=== PATIENT | male | born 1980 | race Caucasian/White ===

== ENCOUNTER → 2017-10-07 | Outpatient (CLI) | payer OTHER ==
[~2017-10-07] MED LIST: ACE500 PO; ALB17R INH; CEFA-83 PO; GUAI480S48 PO; LEVO500T PO; PRE20 PO; [UNRECOGNIZED DRUG - CODE] PO
--- NOTE | 2017-10-07 11:25 | RADIOLOGY IMAGING REPORT ---
FACILITY: [facility] - [place] PATIENT NAME: Elmer Varela : 1980 MR: [id number] V: [id number] EXAM DATE: ORDERING PHYSICIAN: DRU VIDAL TECHNOLOGIST: Location: Patient: Elmer Varela : 1980 Visit/Account:[id number] Date of Sevice: 10/07/2017 Technique: SHOULDER MIN 2 VIEWS LEFT HISTORY: Jerome pop in left shoulder Comparison studies: None FINDINGS: There is no acute fracture. The alignment of the left shoulder is maintained. Soft tissues are unremarkable. IMPRESSION: 1. No acute osseous process. Report Dictated By: Dale Cuevas DO at 10/07/2017 11:21 AM Report E-Signed By: Dale Cuevas DO at 10/07/2017 11:22 AM WSN:[id number]
== END ==
LOC: RAD 09:48
PROVIDERS: ATTEND Nurse Practitioner Family
DX: M25.512 Pain in left shoulder (principal)

== ENCOUNTER 2018-08-03 00:42 | Inpatient (IN) | payer OTHER ==
[~2018-08-03] VITALS: Ht 195.6 cm; Wt 106.1 kg
[2018-08-03] MEDS ORDERED: ANAPHYLAXIS KIT 1 EA ONE (00:48)
--- NOTE | 2018-08-03 00:53 | ER Report ---
History and Physical Time Seen By MD: 00:48 Hx. of Stated Complaint: patient arrived from home, took new antibiotic bactrim before going to bed, woke up and felt numbness to right side of his body, from face to feet HPI/ROS CHIEF COMPLAINT: hoarse voice, cant stand/walk well, numb on right side. HISTORY OF PRESENT ILLNESS: This is a 38 year old male. He awoke tonight with red face, numbness on right side of body, could not stand or walk without falling, and having a hoarse voice. He did start a new antibiotic tonight, he had been on Augmentin for bilateral ear infection which did not seem to be getting better so Bactrim was started. He has had some feeling of being off balance for about a week now. He is also had some pain on the right side of his neck. He has a mild headache. Mild blurred vision but no double vision. He has paresthesias in the right side of the face, arm, and leg. He cannot walk and falls toward the right side. Despite being off balance, he does not feel any weakness in the arm leg or face. His voice is hoarse and he is having trouble swallowing. REVIEW OF SYSTEMS: Constitutional: No fevers or chills tonight. Eyes: As above. ENT: As above. Cardiovascular: No chest pain. No palpitations. Respiratory: No shortness of breath. Gastrointestinal: No abdominal pain. He has been having some nausea. No vomiting. Genitourinary: No trouble urinating. Musculoskeletal: No back pain. No extremity pain. Skin: As above. Neurological: As above. Allergies: Coded Allergies: sulfamethoxazole (Verified Allergy, Severe, angioedema, 08/03/18) trimethoprim (Verified Allergy, Severe, angioedema, 08/03/18) propranolol (Verified Allergy, Intermediate, 08/03/18) FACE SWELLING varenicline (Verified Allergy, Mild, 08/03/18) FACE SWELLING red dye (Verified Allergy, Unknown, 08/03/18) Home Meds Reported Medications Ondansetron Hcl (ZOFRAN) 4 Mg Tablet, 4 MG PO Q12H, TAB 08/03/18 Sulfamethoxazole/Trimet 800-160 Mg Tab (BACTRIM DS TABLET) 1 Each Tablet, 1 TAB PO Q12H, TAB 08/03/18 Nebivolol Hcl (BYSTOLIC) 2.5 Mg Tablet, MG PO unkown dosage 08/03/18 Discontinued Reported Medications Albuterol (Proventil Inhaler) 17 Gm Inh, 0 INH Q4H 1 1-2 PUFFS 09/07/07 Guaifenesin/Hydrocodone Bit (Hycotuss Expectorant) 480 Ml Syrup, 4 OZ PO Q4H 1, #0 ONE TSP BY MOUTH EVERY FOUR HOURS NEEDED FOR COUGH 09/07/07 Prednisone (Prednisone) 20 Mg Tab, 20 MG PO WARF for 4 Days IN THE MORNING 09/07/07 Levofloxacin (Levaquin) 500 Mg Tablet, 500 MG PO DAILY for 7 Days 09/07/07 Past Medical/Surgical History He has high blood pressure and takes Bystolic once a day. Reviewed Nurses Notes: Yes Hx Smoking: Yes Smoking Status: Current: Every Day Smoker Hx Substance Use Disorder: Yes (rare use of marijuana, no other drugs.) Hx Alcohol Use: Yes (occasional use) Family History of: HTN Constitutional Vital Sign - Last 24 Hours 08/03/18 08/03/18 08/03/18 08/03/18 00:48 01:00 01:30 01:45 Temp 97.0 Pulse 70 67 64 Resp 20 20 12 B/P (MAP) 148/104 136/104 (115) 134/109 (117) Pulse Ox 92 O2 Delivery Room Air 08/03/18 08/03/18 08/03/18 08/03/18 02:00 02:01 02:08 02:45 Pulse 67 73 56 Resp 14 17 21 B/P (MAP) 160/108 (125) 130/107 (115) Pulse Ox 97 94 O2 Delivery Room Air Room Air 08/03/18 08/03/18 08/03/18 08/03/18 03:00 03:02 03:15 03:17 Pulse 66 61 Resp 12 11 B/P (MAP) ???/??? (1665) 133/100 (111) Pulse Ox 91 93 O2 Delivery Room Air 08/03/18 08/03/18 08/03/18 08/03/18 03:30 03:45 04:00 04:05 Pulse 62 61 62 60 Resp 11 12 14 14 Pulse Ox 93 92 93 96 O2 Delivery Room Air Room Air Room Air 08/03/18 08/03/1818 04:20 04:30 04:50 Pulse 68 62 Resp 20 9 B/P (MAP) 148/97 (114) Pulse Ox 90 94 O2 Delivery Room Air Room Air Intake and Output 08/02/18 08/02/18 08/03/18 14:59 22:59 06:59 Intake Total 50 ml Balance 50 ml Physical Exam General Appearance: The patient is alert. Acute distress from symptoms. Eyes: Pupils are equal, round. Reactive to light. No pallor, injection or icterus. Extraocular movements are intact. ENT: Mucous membranes are moist. Normal oral mucosa. Posterior oropharynx is normal. Bilateral tympanic membranes with effusions but no redness or bulging noted. Canals appear normal. I don't see any mucous membrane lesions. Neck: Supple, some mild tenderness in the right side of the neck. He does have some cervical lymphadenopathy present. Respiratory: Lungs are clear to auscultation. There are no retractions or accessory muscle use. Cardiovascular: Regular rate and rhythm. No murmurs, gallops or rubs. Normal capillary refill. No edema. Gastrointestinal: Abdomen is soft and non tender. Nondistended. Normal active bowel sounds. Neurological: Alert and oriented x3. Cranial nerves show no deficits other than the hoarseness of his voice and tingling on the right side of his face which is in all 3 distributions. Eye exam as noted above. Visual loving are intact by dir ect confrontation. Midline tongue and symmetric palate elevation. His extremities show normal strength and normal reflexes, paresthesias throughout the right arm and right leg. Skin: Warm and dry. He does have redness of the face which is blotchy but no hives anywhere else noted. Musculoskeletal: Extremities are nontender. Full range of motion. No tenderness in palpation of the cervical, thoracic and lumbar spine. DIFFERENTIAL DIAGNOSIS: After history and physical exam, differential diagnosis was considered for a patient with changes tonight upon awakening that are concerning for stroke or other neurologic problem but also could E related to allergic reaction or adverse reaction to medication. NIH stroke scale was done after the patient went for a head CT scan, noncontrast. My NIH stroke scale showed deficits with the sensory on the right side, mild limb ataxia in the right arm, and mild dysarthria. NIH stroke scale score of 3. Medical Decision Making Data Points Result Diagram: 08/03/18 0130 08/03/18 0100 Laboratory Hematology Test 08/03/18 01:00 08/03/18 01:30 Sodium Level 136 mmol/L (137-145) Potassium Level 3.7 mmol/L (3.5-5.0) Chloride Level 104 mmol/L (98-107) Carbon Dioxide Level 21 mmol/L (22-30) Blood Urea Nitrogen 18 mg/dl (9-21) Creatinine 1.10 mg/dl (0.66-1.25) Glomerular Filtration Rate Calc > 60.0 Random Glucose 117 mg/dl (75-110) Calcium Level 9.3 mg/dl (8.4-10.2) Total Bilirubin 1.7 mg/dl (0.2-1.3) Aspartate Amino Transf (AST/SGOT) 32 U/L (0-35) Alanine Aminotransferase (ALT/SGPT) 48 U/L (0-56) Alkaline Phosphatase 77 U/L (0-126) Troponin I < 0.012 ng/ml Total Protein 7.7 g/dl (6.3-8.2) Albumin 4.4 g/dl (3.5-5.0) Red Blood Count 5.83 M/uL (4.00-5.60) Mean Corpuscular Volume 91.4 fL (80.0-96.0) Mean Corpuscular Hemoglobin 31.8 pg (26.0-33.0) Mean Corpuscular Hemoglobin Concent 34.8 g/dL (32.0-36.0) Red Cell Distribution Width 13.4 % (11.5-14.5) Mean Platelet Volume 8.3 fL (7.2-11.1) Neutrophils (%) (Auto) 54.5 % (39.4-72.5) Lymphocytes (%) (Auto) 28.1 % (17.6-49.6) Monocytes (%) (Auto) 9.3 % (4.1-12.4) Eosinophils (%) (Auto) 7.1 % (0.4-6.7) Basophils (%) (Auto) 1.0 % (0.3-1.4) Nucleated RBC Relative Count (auto) 0.0 /100WBC Neutrophils # (Auto) 6.3 K/uL (2.0-7.4) Lymphocytes # (Auto) 3.2 K/uL (1.3-3.6) Monocytes # (Auto) 1.1 K/uL (0.3-1.0) Eosinophils # (Auto) 0.8 K/uL (0.0-0.5) Basophils # (Auto) 0.1 K/uL (0.0-0.1) Nucleated RBC Absolute Count (auto) 0.00 K/uL Prothrombin Time 13.5 seconds (12.0-14.4) Prothromb Time International Ratio 1.03 Chemistry Test 08/03/18 01:00 08/03/18 01:30 Glomerular Filtration Rate Calc > 60.0 Calcium Level 9.3 mg/dl (8.4-10.2) Total Bilirubin 1.7 mg/dl (0.2-1.3) Aspartate Amino Transf (AST/SGOT) 32 U/L (0-35) Alanine Aminotransferase (ALT/SGPT) 48 U/L (0-56) Alkaline Phosphatase 77 U/L (0-126) Troponin I < 0.012 ng/ml Total Protein 7.7 g/dl (6.3-8.2) Albumin 4.4 g/dl (3.5-5.0) White Blood Count 11.5 k/uL (4.5-11.0) Red Blood Count 5.83 M/uL (4.00-5.60) Hemoglobin 18.5 g/dL (14.0-18.0) Hematocrit 53.3 % (42.0-52.0) Mean Corpuscular Volume 91.4 fL (80.0-96.0) Mean Corpuscular Hemoglobin 31.8 pg (26.0-33.0) Mean Corpuscular Hemoglobin Concent 34.8 g/dL (32.0-36.0) Red Cell Distribution Width 13.4 % (11.5-14.5) Platelet Count 254 K/uL (150-450) Mean Platelet Volume 8.3 fL (7.2-11.1) Neutrophils (%) (Auto) 54.5 % (39.4-72.5) Lymphocytes (%) (Auto) 28.1 % (17.6-49.6) Monocytes (%) (Auto) 9.3 % (4.1-12.4) Eosinophils (%) (Auto) 7.1 % (0.4-6.7) Basophils (%) (Auto) 1.0 % (0.3-1.4) Nucleated RBC Relative Count (auto) 0.0 /100WBC Neutrophils # (Auto) 6.3 K/uL (2.0-7.4) Lymphocytes # (Auto) 3.2 K/uL (1.3-3.6) Monocytes # (Auto) 1.1 K/uL (0.3-1.0) Eosinophils # (Auto) 0.8 K/uL (0.0-0.5) Basophils # (Auto) 0.1 K/uL (0.0-0.1) Nucleated RBC Absolute Count (auto) 0.00 K/uL Prothrombin Time 13.5 seconds (12.0-14.4) Prothromb Time International Ratio 1.03 Coagulation Test 08/03/18 01:30 Prothrombin Time 13.5 seconds Prothromb Time International Ratio 1.03 EKG/Imaging EKG Interpretation 12 lead EKG: Rhythm: Normal sinus rhythm, rate 64 [place]: normal QRS: Incomplete right bundle branch block ST segments: No signs of ischemia, no ST elevation or depression noted Imaging CT Head without contrast Indication: Right-sided numbness. Comparison: None available. Technique: Axial CT images were obtained through the brain from the skull base to the vertex without administration of IV contrast. One of the following dose optimization techniques was utilized in the performance of this exam: Automated exposure control; adjustment of the mA and/or kV according to the patient's size; or use of an iterative reconstruction technique. Specific details can be referenced in the facility's radiology CT exam operational policy. Findings: No evidence of mass, mass effect, or midline shift. No acute intracranial hemorrhage or acute territorial infarction. Skull is nonacute. Globes and orbits are normal. Mild mucosal thickening and/or small cysts in the maxillary sinuses. IMPRESSION: No acute intracranial abnormality. Dr. Jerry discussed this case with STACY LERNER on 08/03/2018 1:34 AM. Report Dictated By: Joey Jerry MD at 08/03/2018 1:30 AM ED Course/Re-evaluation Clinical Indication for ER IV: IV Access ED Course After my initial evaluation, I had the nurses start an IV and the patient was given Solu-Medrol, Benadryl, and Pepcid and then went to CT scan. Noncontrast CT scan was obtained. I performed my NIH stroke scale when the patient returned from CT scan. IVs were established, EKG obtained, labs sent for further evaluation. Tele-stroke was accessed and we were able to talk with Dr. Ortega, at the [facility]. We repeated the stroke scale, and he did have improvement of the ataxia of the right arm, and did have some improvement of the tingling in the right arm and right leg but the tingling in the face remained. He still had the hoarseness. He is not able to stand up without falling to the right side and is unable to walk. Based on our evaluation tonight, the patient remains in a window for thrombolytics, we had a discussion with the patient and his regarding the use of medicines for stroke, but in this case we cannot tell for sure if he is having a stroke or not. We explained the benefit of using the medicine as well as the risk. We answered questions and after doing so the patient decided that he would like to not use the thrombolytics at this point. At this point as an alternative we performed a CTA of the head and neck. These were negative for vascular pathology. I discussed the results with Dr. Cuenca, our hospitalist, is admitting the patient. At this point uncertain of the exact diagnosis of the patient's symptoms. Further workup including MRI to be done. Decision to Disposition Date: Aug 03, 2018 Decision to Disposition Time: 04:17 Depart Departure Latest Vital Signs Vital Signs Date Time Temp Pulse Resp B/P (MAP) Pulse Ox O2 Delivery O2 Flow Rate FiO2 08/03/18 04:50 62 9 94 Room Air 08/03/18 04:30 148/97 (114) 08/03/18 00:48 97.0 Impression: Primary Impression: Acute allergic reaction Additional Impressions: Paresthesias Disequilibrium Hoarseness of voice Condition: Condition Unchanged Disposition: Admitted from ER Problem Qualifiers Primary Impression: Acute allergic reaction Encounter type: initial encounter Qualified Codes: T78.40XA - Allergy, unspecified, initial encounter STACY LERNER MD Aug 03, 2018 00:53
[2018-08-03] MEDS ORDERED: methylPREDNIS SUCC 125 MG/2ML IVP ONE (00:55)
[2018-08-03] MEDS ORDERED: diphenhydrAMINE 50 MG/ML VIAL IVP ONE (00:55)
[2018-08-03] MEDS ORDERED: FAMOTIDINE(*) 20MG/50ML PREMIX 50 ML IVPB ONE (00:55)
[2018-08-03] MEDS ORDERED: NEBI2.5T PO (01:17)
[2018-08-03] MEDS ORDERED: SULF-198 PO (01:18)
[2018-08-03] MEDS ORDERED: ONDA4TAB97 PO (01:18)
--- NOTE | 2018-08-03 01:39 | RADIOLOGY IMAGING REPORT ---
FACILITY: [facility] - [place] PATIENT NAME: Elmer Varela : 1980 MR: [id number] V: [id number] EXAM DATE: ORDERING PHYSICIAN: STACY LERNER TECHNOLOGIST: Location: [facility] [place] Patient: Elmer Varela : 1980 Visit/Account:[id number] Date of Sevice: 08/03/2018 CT Head without contrast Indication: Right-sided numbness. Comparison: None available. Technique: Axial CT images were obtained through the brain from the skull base to the vertex without administration of IV contrast. One of the following dose optimization techniques was utilized in th e performance of this exam: Automated exposure control; adjustment of the mA and/or kV according to t he patient's size; or use of an iterative reconstruction technique. Specific details can be referen la in the facility's radiology CT exam operational policy. Findings: No evidence of mass, mass effect, or midline shift. No acute intracranial hemorrhage or acute territorial infarction. Skull is nonacute. Globes and orbits are normal. Mild mucosal thickening and/or small cysts in the maxillary sinuses. IMPRESSION: No acute intracranial abnormality. Dr. Jerry discussed this case with STACY LERNER on 08/03/2018 1:34 AM. Report Dictated By: Joey Jerry MD at 08/03/2018 1:30 AM Report E-Signed By: Joey Jerry MD at 08/03/2018 1:35 AM WSN:[id number]
[2018-08-03 01:41] LABS: PLATELET COUNT, AUTOMATED 254 K/uL (150-450)
[2018-08-03 01:57] LABS: INR 1.03
[2018-08-03] MEDS ORDERED: NS(*) 0.9% 50 ML BAG 50 ML ONE ×2 (02:12→02:38)
[2018-08-03] MEDS ORDERED: IOPAMIDOL 76% 75 ML INFUS BTL 75 ML ONE ×2 (02:12→02:38)
--- NOTE | 2018-08-03 03:21 | RADIOLOGY IMAGING REPORT ---
FACILITY: [facility] PATIENT NAME: Elmer Varela : 1980 MR: [id number] V: [id number] EXAM DATE: ORDERING PHYSICIAN: STACY LERNER TECHNOLOGIST: [place] [facility] [place] Elmer Varela : 1980 Visit/Account:[id number] Date of Sevice: 08/03/2018 AP CHEST 08/03/2018 2:43 AM. INDICATION: COMPARISON: 09/05/2007. FINDINGS: Lungs are well-expanded. There is no consolidation. No pleural effusion or pneumothorax. Heart size i s normal. IMPRESSION: No acute abnormality. Report Dictated By: Joey Jerry MD at 08/03/2018 2:59 AM Report E-Signed By: Joey Jerry MD at 08/03/2018 3:00 AM WSN:[id number]
--- NOTE | 2018-08-03 03:28 | RADIOLOGY IMAGING REPORT ---
FACILITY: [facility] PATIENT NAME: Elmer Varela : 1980 MR: [id number] V: [id number] EXAM DATE: [id number] ORDERING PHYSICIAN: STACY LERNER TECHNOLOGIST: Location: [facility] Patient: Elmer Varela : 1980 Visit/Account:[id number] Date of Sevice: 08/03/2018 CT angiogram head and neck INDICATION: Right-sided numbness. COMPARISON: None available TECHNIQUE: Axial CT images were obtained through the cerebral and neck vasculature. Multiplanar ref ormatted images were provided. 2-D and 3-D imaging was performed. Evaluation of internal carotid st enosis was performed per NASCET criteria. A total of 125 mL Isovue-370 IV contrast was administered. One of the following dose optimization techniques was utilized in the performance of this exam: Autom ated exposure control; adjustment of the mA and/or kV according to the patient's size; or use of an i terative reconstruction technique. Specific details can be referenced in the facility's radiology C T exam operational policy. FINDINGS: The middle cerebral arteries, anterior cerebral arteries, posterior cerebral arteries as well as the bilateral vertebral arteries and carotid arteries are patent without focal stricture or aneurysm. Ve rtebral system is left dominant. There are no significant atherosclerotic calcifications seen. The visualized aortic arch and great vessels off the aortic arch are unremarkable. Left superior interco stal vein noted adjacent to the aortic arch. Dural venous sinuses are patent. No acute osseous abnormality. Soft tissues are nonacute. Calcifications in the palatine tonsils con sistent with remote infection. Lung apices are clear. IMPRESSION: No acute abnormality of the neck and cerebral vasculature. Report Dictated By: Joey Jerry MD at 08/03/2018 3:12 AM Report E-Signed By: Joey Jerry MD at 08/03/2018 3:24 AM WSN:[id number]
--- NOTE | 2018-08-03 03:30 | RADIOLOGY IMAGING REPORT ---
FACILITY: [facility] - [place] PATIENT NAME: Elmer Varela : 1980 MR: [id number] V: [id number] EXAM DATE: [id number] ORDERING PHYSICIAN: STACY LERNER TECHNOLOGIST: Location: [facility] [place] Patient: Elmer Varela : 1980 Visit/Account:[id number] Date of Sevice: 08/03/2018 CT angiogram head and neck INDICATION: Right-sided numbness. COMPARISON: None available TECHNIQUE: Axial CT images were obtained through the cerebral and neck vasculature. Multiplanar ref ormatted images were provided. 2-D and 3-D imaging was performed. Evaluation of internal carotid st enosis was performed per NASCET criteria. A total of 125 mL Isovue-370 IV contrast was administered. One of the following dose optimization techniques was utilized in the performance of this exam: Autom ated exposure control; adjustment of the mA and/or kV according to the patient's size; or use of an i terative reconstruction technique. Specific details can be referenced in the facility's radiology C T exam operational policy. FINDINGS: The middle cerebral arteries, anterior cerebral arteries, posterior cerebral arteries as well as the bilateral vertebral arteries and carotid arteries are patent without focal stricture or aneurysm. Ve rtebral system is left dominant. There are no significant atherosclerotic calcifications seen. The visualized aortic arch and great vessels off the aortic arch are unremarkable. Left superior interco stal vein noted adjacent to the aortic arch. Dural venous sinuses are patent. No acute osseous abnormality. Soft tissues are nonacute. Calcifications in the palatine tonsils con sistent with remote infection. Lung apices are clear. IMPRESSION: No acute abnormality of the neck and cerebral vasculature. Report Dictated By: Joey Jerry MD at 08/03/2018 3:26 AM Report E-Signed By: Joey Jerry MD at 08/03/2018 3:27 AM WSN:[id number]
--- NOTE | 2018-08-03 04:49 | EKG ---
FACILITY: [facility] PATIENT NAME: FE AQUINO : [id number] MR: [id number] V: [id number] EXAM DATE: ORDERING PHYSICIAN: STACY LERNER TECHNOLOGIST: JOSELIN Test Reason : NEURO Blood Pressure : / mmHG Vent. Rate : 064 BPM Atrial Rate : 064 BPM P-R Int : 176 ms QRS Dur : 098 ms QT Int : 442 ms P-R-T Axes : 064 -15 026 degrees QTc Int : 455 ms Normal sinus rhythm No ST-T abnormalities R wave progression consistent with an old ant/sep [place] vs lead placement No previous ECGs available Confirmed by RHONDA SHOEMAKER ([id number]) on 08/03/2018 6:42:08 AM Referred By: Confirmed By:RHONDA SHOEMAKER
[2018-08-03] MEDS ORDERED: EPINEPHrine 0.3 MG SYR IM ONLY PRN ×2 (04:50→09:55)
[2018-08-03] MEDS ORDERED: INFLUENZA VIRUS VAC 0.5ML SYR IM ONLY ONE (04:50)
[2018-08-03 05:35] VITALS: BP 133/55
--- NOTE | 2018-08-03 05:40 | History & Physical ---
History of Present Illness History of Present Illness 38yo male with HTN and is a current cigarette smoker who came to the ER for sudden onset of hoarseness, right facial swelling/numbness, and problems with balance. 6 days ago, he developed some mild balance problems, and right ear pain that radiated to his forehead. He went to Urgent Care that diagnosed an ear infection and he was started on Augmentin. The balance problems improved, but he had significant nausea with the Augmentin. he saw his PCP who changed him to Bactrim. He took the first two doses yesterday. He went to bed about 10pm and awoke at 1am with the above problems. He reported some tingling in the bottom of his right foot and going down the right leg that now has resolved. He denies vertigo symptoms, sensation of about to pass out, extremity weakness. He chronically gets intermittent neck pain and right sided jaw pain for a couple of years. He took some Vitamin D today. He has been on Bystolic for about a year. He takes ibuprofen every once in awhile. In the ER, he was given methylprednisolone, diphenhydramine, and famotidine. The facial swelling and hoarseness have been slowly improving. History Problems: (1) Cigarette smoker (2) HTN (hypertension) Status: Chronic Home Meds Reported Medications Ondansetron Hcl (ZOFRAN) 4 Mg Tablet, 4 MG PO Q12H, TAB 08/03/18 Sulfamethoxazole/Trimet 800-160 Mg Tab (BACTRIM DS TABLET) 1 Each Tablet, 1 TAB PO Q12H, TAB 08/03/18 Nebivolol Hcl (BYSTOLIC) 2.5 Mg Tablet, MG PO unkown dosage 08/03/18 Discontinued Reported Medications Albuterol (Proventil Inhaler) 17 Gm Inh, 0 INH Q4H 1 1-2 PUFFS 09/07/07 Guaifenesin/Hydrocodone Bit (Hycotuss Expectorant) 480 Ml Syrup, 4 OZ PO Q4H 1, #0 ONE TSP BY MOUTH EVERY FOUR HOURS NEEDED FOR COUGH 09/07/07 Prednisone (Prednisone) 20 Mg Tab, 20 MG PO WARF for 4 Days IN THE MORNING 09/07/07 Levofloxacin (Levaquin) 500 Mg Tablet, 500 MG PO DAILY for 7 Days 12/19/07 Allergies: Coded Allergies: Bactrim (Verified Allergy, Severe, angioedema, 08/03/18) propranolol (Verified Allergy, Intermediate, 08/03/18) FACE SWELLING varenicline (Verified Allergy, Mild, 08/03/18) FACE SWELLING red dye (Verified Allergy, Unknown, 08/03/18) Hx Smoking: Yes Smoking Status: Current: Every Day Smoker Hx Alcohol Use: Yes (occasional use) Review of Systems All Systems Reviewed/Normal: Yes, Except as Noted Exam Vital Signs Vital Signs Date Time Temp Pulse Resp B/P (MAP) Pulse Ox O2 Delivery O2 Flow Rate FiO2 08/03/18 04:50 62 9 94 Room Air 08/03/18 04:30 148/97 (114) 08/03/18 00:48 97.0 General Appearance: Alert, Awake, No Acute Distress Neuro: Other (He reports the sensation of "pins and needles" on the right in V2 and V3 distribution. Other CN intact. Normal and symmetric UE and LE strenght testing. Normal sensation to light touch in UE and LE. Knows where he is, the events that brought him to the hospital, and date) Eyes: Other (R pupil appears a bit small than the L (2mm and 3mm). Both are reactive. ) ENT: Moist Mucous Membranes, Other (No obvious tongue swelling. Uvula deviates to the right. No palate swelling. No cheek swelling. Erythema in the ext canals bilaterally near the TM with an effusion behind the TM. No auricular pain bilaterally or pain with the speculum in the ears.) Cardiovascular: Regular Rate and Rhythm Respiratory: Clear to Auscultation GI: Abd Soft and Non-Tender Extremities: No Edema Integumentary: No Jaundice, No Cyanosis Medical Decision Making Data Points Result Diagram: 08/03/18 01308/03/18 010 Item Value Date Time Prothromb Time International Ratio 1.03 08/03/18 013 Total Bilirubin 1.7 mg/dl H 08/03/18 010 Aspartate Amino Transf (AST/SGOT) 32 U/L 08/03/18 010 Alanine Aminotransferase (ALT/SGPT) 48 U/L 08/03/18 010 Alkaline Phosphatase 77 U/L 08/03/18 010 Neutrophils (%) (Auto) 54.5 % 08/03/18 013 Lymphocytes (%) (Auto) 28.1 % 08/03/18129 Monocytes (%) (Auto) 9.3 % 08/03/18129 Eosinophils (%) (Auto) 7.1 % H 08/03/18129 Basophils (%) (Auto) 1.0 % 08/03/18129 EKG / Imaging Imaging Head CTA - No acute abnormality of the neck and cerebral vasculature. Neck CTA - No acute abnormality of the neck and cerebral vasculature. CXR - No acute abnormality. Head CT - No acute intracranial abnormality. Assessment and Plan Problems: (1) Acute allergic reaction Status: Acute Assessment & Plan: He presented with sudden onset right facial swelling, hoarseness, right facial numbness, and difficulty with balance. He has taken 2 doses of Bactrim for Otitis Media. He was given methylprednisolone, diphenhydramine and famotidine in the ER and his symptoms are significantly improving. (2) Disequilibrium Status: Acute Assessment & Plan: He had some difficulty with balance 6 days prior to admission, which started with the right ear pain. It improved, but worsened tonight. He denied vertigo/near syncope symptoms. No obvious nystagmus on exam. The head CT and head/neck CTA showed no abnormalities. He will get an MRI of the brain to further evaluate the balance problems and the paraesthesias. Will ask PT to evaluate. See above. (3) Hoarseness of voice Status: Acute Assessment & Plan: See above. (4) Paresthesias Status: Acute Assessment & Plan: See above. (5) HTN (hypertension) Status: Chronic Assessment & Plan: Will continue chronic Bystolic. He might be better served with another class of antihypertensive since BB are not first line for HTN. However, he might have other reasons to be on it, so will defer to his PCP. Copies to: MAHIN FINN ; Venous Thromboembolism Antithrombotics Is Pt On Any Antithrombotics?: No Exam Sepsis Risk: No Definite Risk Problem Qualifiers (1) Acute allergic reaction: Encounter type: initial encounter Qualified Codes: T78.40XA - Allergy, unspecified, initial encounter RHONDA SHOEMAKER MD Aug 03, 2018 05:40
[2018-08-03 07:20] VITALS: BP 143/98
--- NOTE | 2018-08-03 08:44 | RADIOLOGY IMAGING REPORT ---
FACILITY: [facility] PATIENT NAME: Elmer Varela : 1980 MR: [id number] V: [id number] EXAM DATE: ORDERING PHYSICIAN: RHONDA SHOEMAKER TECHNOLOGIST: Location: [facility] Patient: Elmer Varela : 1980 Visit/Account:[id number] Date of Sevice: 08/03/2018 BRAIN W/O CONTRAST Comparisons: None. Additional pertinent history: Right facial numbness and balance problems. TECHNIQUE: Multiplanar, multisequence brain MRI was performed without gadolinium contrast. FINDINGS: Sagittal midline structures and craniocervical junction: Negative. Midline shift: None. Ventricles: Negative. Brain parenchyma: Diffusion weighted imaging: Region of restricted diffusion involving the right lateral aspects of t he medulla Gradient sequence: Negative. T2 weighted FLAIR images: Negative. Extra-axial spaces: Negative. Dural venous sinuses and major arterial flow voids: Negative. Mastoid air cells and paranasal sinuses: Mild mucosal thickening involving the maxillary sinuses as w ell as the ethmoid air cells. Surrounding soft tissues and orbits: Negative. Impression: 1. Acute region of infarct involving the right lateral aspect of the medulla. 2. No associated hemorrhage. 3. Mild underlying paranasal sinus disease. Findings discussed with Dr. Alberto Smith undated exam at 8:30 AM. Report Dictated By: Darvin Marrero MD at 08/03/2018 8:23 AM Report E-Signed By: Darvin Marrero MD at 08/03/2018 8:39 AM WSN:[id number]
[2018-08-03] MEDS ORDERED: FAMOTIDINE 20 MG TAB PO SCH (09:00)
[2018-08-03] MEDS ORDERED: predniSONE 20 MG TAB PO SCH (09:00)
[2018-08-03] MEDS ORDERED: CETIRIZINE HCL 10 MG TAB PO SCH (09:00)
[2018-08-03] MEDS: NEBIVOLOL HCL 5 MG TAB PO SCH ×2 (09:51→21:44)
--- NOTE | 2018-08-03 10:10 | Hospitalist Progress Note ---
Subjective Progress Notes Subjective He reports continued paresthesias on face/arm/leg/foot. He continues to have sense of imbalance as well. Physical Exam Vital Signs Date Time Temp Pulse Resp B/P (MAP) Pulse Ox O2 Delivery O2 Flow Rate FiO2 08/03/18 07:20 91 Room Air 08/03/18 07:20 98.2 68 12 143/98 (113) Intake and Output 08/03/18 06:59 Intake Total 50 ml Balance 50 ml Intake IV Total 50 ml General Appearance: Alert, Awake Neuro: Other (right ptosis, but able to open eye fully/some RUE discoord ination/mild weakness right proximal lower extremity) Eyes: PERRLA, Other (significant rightward nystagmus) ENT: Other (some hoarseness of voice) Neck: Other (no bruits) Cardiovascular: Regular Rate and Rhythm GI: Soft and Non-Tender Extremities: Warm, Perfused Integumentary: Skin Intact without Lesion / Mass Psych: Alert & Oriented X3 Result Diagram: 08/03/18 0130 08/03/18 0100 Assessment and Plan Problems: (1) Arterial ischemic stroke, vertebrobasilar, brainstem, acute Status: Acute Assessment & Plan: Right lateral medullary. Discussed case with neurology at [facility] [place] - recommended IV heparin initially as it sounds he has had some "stuttering" symptoms up to this point. After he has "stabilized" recommendation was for transition to oral anticoagulant with Xarelto or Eliquis. He did not feel there was an indication for thrombolysis or other intervention at this point. Will have PT/OT/ST see. Depending on progress, may need to consider acute rehab. I discussed all of this with the patient and his and they seem to understand very well. (2) Disequilibrium Status: Acute Assessment & Plan: He had some difficulty with balance 6-7 days prior to admission, which started with the right ear pain/facial paresthesias. It initially improved, but worsened significantly last night. He has significant nystagmus on exam. The head CT showed no abnormalities, but CTA showed small right vertebral artery - neurology believes this could represent dissection. MRI of the brain does show the right lateral medullary infarct. See above. (3) Hoarseness of voice Status: Acute Assessment & Plan: See above. (4) Paresthesias Status: Acute Assessment & Plan: See above. (5) HTN (hypertension) Status: Chronic Assessment & Plan: Will continue chronic Bystolic for now - monitor BPs. Watch closely. Exam Sepsis Risk: No Definite Risk HERBERT HOPPER MD Aug 03, 2018 10:10
[2018-08-03] MEDS ORDERED: HEPARIN* SOD/D5W 25000 U/500ML 500 ML IV SCH ×2 (10:30→17:20)
[2018-08-03] MEDS ORDERED: HYPROMELLOSE 0.4% LUB 15ML BTL OU PRN (10:30)
[2018-08-03 11:54] VITALS: BP 126/84
--- NOTE | 2018-08-03 12:19 | Medical Nutrition Therapy ---
Nutrition Anthropometrics Height (Inches): 77 Weight (Pounds): 234 Weight (Calculated Kilograms): 106.141 BMI: 27.7 Ulises Nutrition Score: Adequate Ulises Nutrition Risk Score: 20 Dietary Referral Nutrition Risk Factors: Diff. Swallowing Nutrition Risk Comment: Physical Findings Physical Appearance: Overweight BMI 25-29 Skin Appearance Skin Appearance: Edema Edema Location Modifier: Edema Location: Type of Edema: Degree of Edema: Gastrointestinal Symptoms GI Symtoms: Tube Present: Bowel Sounds: Recent Bowel Pattern: Stool Characteristics: Nutritional Diagnosis Nutritional Risk Acuity 2: Swallowing Problem Past Medical History: Hx hypertension, cigarette smoker (current), Vit D deficiency Nutritional Acuity: 2-Moderate Nutrition Diagnosis: Swallowing Difficulties Nutrition Etiology: Physiological Causes Nutrition Problem/Etiology/Sym: Swallowing difficulties r/t physiological causes AEB reported by pt, swollen throat. Energy Requirement: 2500 (M-SJ * 1.2) Protein Requirement: 120 (1.1g/kg) Fluid Requirement: 2500 (1ml/kg) Diet Type: Clear Liquids Nutrition Intervention: Incr diet as tolerated Nutrition Monitoring & Eval Nutrition Goals: Eat 75-100% Meal, Drink > 1500 cc/day RD Patient Assessment Time: [address] Assessment Type: RD Assessment Patient Nutrition Acuity: 2-Moderate Follow Up Date: Aug 05, 2018 Nutritional Comment: 08/03 Pt admitted for an acute allergic reaction and disequilibrium. Updated MD note states Arterial ischemic stroke, vertebrobasilar, brainstem, acute. Hx of hypertension, cigarette smoker (current), Vit D defiency. Pt on clear liq diet due to difficulty of swallowing. Pt's throat is swollen. Pt stated to me that he was 77 inches in height, which puts his BMI at 28. Alb is WNL at 4.4. ST will evaluate for any texture consistency issues. Will follow. CHON JAY Aug 03, 2018 10:03
[2018-08-03 15:41] VITALS: BP 139/85
[2018-08-03] MEDS ORDERED: ACETAMINOPHEN(*)1000 MG/100 ML 100 ML IVPB PRN (16:30)
[2018-08-03] MEDS ORDERED: NS(*) 0.9% 1000 ML BAG 1,000 ML IV PRN (16:35)
--- NOTE | 2018-08-03 16:43 | SLP BEDSIDE SWALLOW EVALUATION ---
Bedside Dysphagia Evaluation Physician: Marcie Smith MD Clinician: Ivette Lange MS, CCC-SKATING RINK MANAGER Type of Assessment: Bedside Dysphagia Evaluation Patient: Elmer Varela : [birth year], 38yo Evaluation Date: 08/03/18 BACKGROUND The pt is a 38yo male admitted to [facility] on 08/03/18 with sudden onset of vocal hoarseness, nausea, R facial welling/numbness, and loss of balance. Brain MRI illustrated acute infarct involving the right, lateral aspect of the medulla. A dysphagia assessment was ordered secondary to brainstem stroke diagnosis, and due to pt reports of swallowing difficulties. Primary Medical Diagnosis: Arterial ischemic stroke, brainstem, acute (R lateral medullary) Past Medical History: HTN Pain Scale (0-10): pain not reported; however, pt with significant nausea and intermittent dry heaving throughout encounter. RN informed. LOC / Participation: alert, cooperative, pleasant. Participation somewhat limited by severity of nausea. Follows instructions: yes; multi-level; no difficulty. Orientation: A&O x4 Functional Communication Deficits impact swallow function/safety, or response to therapy: No DYSPHAGIA Sialorrhea: No; however, pt with some excessive salivary production independently managed via use of Yankaur. Xerostomia: No. Supplemental Oxygen Use: No. COPD Dx: No. Pain with Swallow: Yes. Pt was seen at the bedside for a clinical dysphagia assessment. Oromotor exam was remarkable for R-sided uvular deviation at rest, and L-sided lingual deviation upon protrusion (consistent with R medullary stroke dx). Otherwise adequate strength, speed, coordination, and ROM of all oral musculature. The pt demonstrated a hoarse, breathy vocal quality with maximum phonation time achieved at approximately 3 seconds. No vocal wetness observed prior to initiation of PO intake. Pt was analyzed w/ PO trials of thin and nectar thick liquids via small, tsp sized cup sips, in addition to trials of pureed solids. PO trials were somewhat limited due to severity of induced nausea and associated dry heaving. Pt executed at least three swallows per bolus to clear material. Vocal changes were noted with thin and nectar thick liquids. Subtle throat clearing also intermittently observed. The pt reported perception of material sticking in the back of his throat with deglutition of pureed textures. Given the region of acute infarct, decreased UES relaxation is suspected. Hyolaryngeal elevation/excursion appeared somewhat sluggish to palpation. Overall, the pt presents with suspected pharyngeal dysphagia characterized by throat clearing and vocal changes with liquid trials, multiple swallows to clear bolus, self- reported sticking sensation in pharynx, breathy vocal quality, and sluggish movement of the hyolaryngeal complex. Nausea and dry heaving associated with PO intake is also concerning due to risk for aspiration of emesis. At this time, pt does not appear appropriate to resume PO intake beyond small sips of water and/or ice chips following participation in rigorous oral care. Sips/chips are recommended to avoid atrophy of pharyngeal musculature and to promote oral hygiene. Evaluation results were discussed w/ pt, MD, and RN, including education re: risk for aspiration, aspiration precautions, PO recommendations, and the importance of completing regular oral hygiene. Recommend completion of MBSS on 08/04 to obtain objective information re: suspected pharyngeal dysphagia. ST ASSESSMENT SUMMARY Aspiration Risk: Pt is at moderate to severely elevated risk for aspiration 2/2 brainstem stroke, suspected pharyngeal dysphagia, vocal hoarseness, and overt s/sx of aspiration observed during bedside swallow assessment. Speech Therapy Need ST will continue to analyze swallow status and evolve diet recommendations as appropriate. MBSS has been scheduled for completion on 08/03/18. ST will also continue to provide education re: aspiration precautions, safe swallow strategies, compensations, and exercises to minimize risk for respiratory compromise. RECOMMENDATIONS 1. Diet: sips/chips only (following oral care). Upright with PO. Small sips only. One at a time. 2. Medications: non-oral, IV 3. Aspiration precautions: complete regular oral hygiene 4. [facility] daily. 1. Patient and caregivers will receive ongoing education re: safe swallow precautions, diet modification recommendations, and compensatory techniques, and will provide verbal/visual demonstration of comprehension with 100% accuracy, min cues. 2. Patient will participate in an objective, modified barium swallow study to develop recommendations for safe PO intake, analyze physiological deficits, trial compensations, and tailor patient-specific pharyngeal exercises. Biometric Screener Goals 1. The patient will safely and efficiently tolerate regular diet and thin liquids with independent implementation of safe swallow strategies and minimized s/s of dysphagia. Rehabilitation Prognosis: Good. Pt w/ high PLOF, strong motivation. Thank you for this referral. Please call [phone] Ivette Lange M.S., [facility]-[employer] MANAGER Speech Therapist [*] [facility]ENTER[facility]
[2018-08-03] MEDS ORDERED: NS(*) 0.9% 500 ML BAG 500 ML ONE (17:04)
[2018-08-03 19:06] VITALS: BP 125/85
[2018-08-03 23:51] VITALS: BP 125/76
[2018-08-04 03:11] VITALS: BP 117/74
[2018-08-04] MEDS ORDERED: HEPARIN* SOD/D5W 25000 U/500ML 500 ML IV SCH (03:16)
[2018-08-04 07:51] LABS: PLATELET COUNT, AUTOMATED 310 K/uL (150-450)
[2018-08-04 08:11] LABS: LDL CHOLESTEROL 125 mg/dl
[2018-08-04] MEDS: NEBIVOLOL HCL 5 MG TAB PO SCH ×2 (08:53→21:03)
[2018-08-04] MEDS ORDERED: NEBIVOLOL HCL 5 MG TAB PO SCH (09:00)
[2018-08-04 09:18] VITALS: BP 123/87
[2018-08-04] MEDS ORDERED: BARIUM SULFATE 148 GM POWDER ONE (09:23)
[2018-08-04] MEDS ORDERED: BARIUM SULFATE 240 ML ORAL SUS (NECTAR) ONE (09:23)
[2018-08-04] MEDS: APIXABAN 2.5 MG TABLET PO SCH ×2 (09:28→21:04)
--- NOTE | 2018-08-04 10:33 | Hospitalist Progress Note ---
Subjective Progress Notes Subjective He reports continued double vision, right facial numbness, right upper leg tingling, and balance problems. His thinks he looks a bit better today. Physical Exam Vital Signs Date Time Temp Pulse Resp B/P (MAP) Pulse Ox O2 Delivery O2 Flow Rate FiO2 08/04/18 05:41 90 08/04/18 03:58 61 08/04/18 03:11 97.9 18 117/74 (88) Nasal Cannula 1.0 l Intake and Output 08/04/18 07:00 Intake Total 1696 ml Output Total 400 ml Balance 1296 ml Intake Oral 480 ml IV Total 1216 ml Output Urine Total 400 ml General Appearance: Alert, Awake, No Acute Distress, Other (Face and upper ch est are a bit flushed) Neuro: Other (Nystagmus that won't extinguish when looking to his right. He reports continued diplopia. EOMI. Strength is adequate and symmetric in UE and LE. He normal sensation to light touch in UE and LE. He has decreased sensation to light touch in V2 distribution on right, but then reports entire right side of face feels numb. No facial droop. Hoarse. R pupil a bit smaller than L, but both are reactive.) Result Diagram: 08/04/1874308/04/18743 Assessment and Plan Problems: (1) Arterial ischemic stroke, vertebrobasilar, brainstem, acute Status: Acute Assessment & Plan: The patient presented with right facial numbness/swelling, falling to the right, hoarseness, trouble swallowing, and tingling in right leg. He has a stroke in the Right lateral medullary by MRI. Dr. Smith discussed the case with neurology (Dr. Leonard Andrade) at [facility] - recommended IV heparin initially as it sounds he has had some "stuttering" symptoms and transition to oral anticoagulant with Xarelto or Eliquis with ASA 81mg. He did not feel there was an indication for thrombolysis or other intervention at this point. Will switch to Eliquis today. Crestor high intensity therapy starting tonight. Patient told that he can no longer smoke cigarettes. PT/OT/ST seeing the patient. MBS, echo, and carotid Doppler study today. SW is looking at acute rehab facilities. (2) Disequilibrium Status: Acute Assessment & Plan: He had some difficulty with balance 6-7 days prior to admission, which started with the right ear pain/facial paresthesias. It initially improved, but worsened significantly the night of admission. He has significant nystagmus on exam. The head CT showed no abnormalities, but CTA showed small right vertebral artery - neurology believes this could represent di ssection. MRI of the brain does show the right lateral medullary infarct. See above. (3) Hoarseness of voice Status: Acute Assessment & Plan: See above. (4) Paresthesias Status: Acute Assessment & Plan: See above. (5) HTN (hypertension) Status: Chronic Assessment & Plan: Will continue chronic Bystolic for now - monitor BPs. Watch closely. Exam Sepsis Risk: No Definite Risk RHONDA SHOEMAKER MD Aug 04, 2018 10:33
[2018-08-04] MEDS ORDERED: IBUP-56 PO (10:46)
[2018-08-04] MEDS ORDERED: CHOL100058 PO (10:46)
[2018-08-04] MEDS: ASPIRIN 81 MG CHEW PO SCH (10:49)
[2018-08-04 10:50] VITALS: BP 139/99
--- NOTE | 2018-08-04 11:10 | SLP MODIFIED BARIUM SWALLOW ---
Modified Barium Swallow Evaluation Report Clinician: Ivette Lange MS, CCC-GUIDE CRUISE Type of Assessment: Modified Barium Swallow Study Patient: Elmer Varela : [birth year], 38yo Evaluation Date: 08/04/18 BACKGROUND The pt is a 38yo male admitted to [facility] on 08/03/18 with sudden onset of vocal hoarseness, nausea, R facial welling/numbness, and loss of balance. Brain MRI illustrated acute infarct involving the right, lateral aspect of the medulla. A bedside dysphagia assessment was ordered on the date of admission secondary to brainstem stroke diagnosis, and due to pt reports of swallowing difficulties. The pt presented with suspected pharyngeal dysphagia characterized by throat clearing and vocal changes with liquid trials, multiple swallows to clear bolus, self-reported sticking sensation in pharynx, breathy vocal quality, and sluggish movement of the hyolaryngeal complex. The pt was judged to be at a moderate to severely elevated risk for aspiration, and a modified barium swallow study was recommended to objectively analyze pharyngeal swallow status. Oxygen Supplementation: none. Level of Consciousness: non-altered Cognition: WFL Language: WFL Speech: WFL Voice: Impaired. Very breathy, hoarse, decreased volume. Will continue to evaluate. Non-verbal Oral Structure and Function: R-sided uvular deviation at rest, and L-sided lingual deviation upon protrusion. Sensory changes in oral cavity (sensation of heat on R with relative coldness on L). Pain with Swallow: endorses; reduced vs previous encounter. Current Diet: NPO with sips/chips only. Pre-Study ROSEMARY: 1 MODIFIED BARIUM SWALLOW In conjunction with radiology, the pt was seated in the lateral view and self- presented trials of the following consistencies: single and consecutive cup sips of thin liquids, straw sips of thin liquids, pureed solids, mechanically soft solids, mixed consistencies, regular solids, and a 1cm barium pill. The pt was not assessed in the A-P view due to significant deficits in standing balance. * Indicates impairment ORAL PHASE WNL Lip Closure: complete labial seal, no anterior spillage Tongue Control during Bolus Hold: adequate containment, some premature posterior spillage of thin liquid component during mastication of solids with mixed textures Bolus preparation and mastication: timely, efficient, and complete Bolus transport/Lingual motion: adequate stripping wave, timely propulsion. Oral Residue: trace amounts/lingual coating. WNL. PHARYNGEAL PHASE moderate impairments Initiation of Pharyngeal Swallow: WNL Soft palate elevation: complete velopharyngeal closure Tongue base retraction: WNL *Hyo-laryngeal elevation/excursion: diminished superior movement *Epiglottic inversion: decreased inversion with lack of approximation to arytenoid cartilage *Laryngeal Vestibule Closure (LVC): incomplete closure. Contrast noted in laryngeal vestibule. *Pharyngeal stripping wave: diminished *UES opening: obstruction of flow as material entered cervical esophagus resulting in significant residue in the pyriform sinus *Pharyngeal residue: Residue collection in valleculae (moderate), pyriform sinus (moderate to severe), and on posterior pharyngeal wall (mild) across trials. Severity increased with size of bolus. ESOPHAGEAL STAGE *Esophageal Clearance: delayed clearance of liquids noted in distal 1/3 of esophagus. Complete clearance of pill without obstruction. Patients oral phase is within normal limits (WNL) with adequate strength, range of motion, speed and coordination of all oral musculature for timely and complete mastication, appropriate bolus formation, good bolus control, and efficient anterior to posterior transit in oral cavity. Initiation of the pharyngeal swallow was variable, ranging from the base of the tongue to the level of the pyriforms with the thin liquid component during mastication of solids with trials of mixed textures. This delay is considered a normal deviation, and sensation appeared otherwise intact. During pharyngeal swallow onset, the pts superior hyolaryngeal movement was diminished with subsequent reduction in epiglottic inversion and incomplete closure of the laryngeal vestibule. This resulted in penetration of large volumes of thin liquids during the swallow to the level of the vocal folds without complete ejection (PAS 5). Penetration above the vocal folds was also witnessed with residual thin liquids (PAS 3), and the trace amount of material remained in the laryngeal vestibule. The pts sluggish and reduced superior hyolaryngeal movement resulted in decreased epiglottic inversion with moderate residue in the vallecular space. This also likely contributed to reduced opening of the upper esophageal sphincter with moderate to severe residue in the pyriform sinuses. Diminished pharyngeal stripping waveform further resulted in reduced pharyngeal clearance. The amount of residue increased in quantity in correlation with the size of the bolus, and with hard, crunchy textures. With hard, crunchy solids, 90% of material remained in the pyriform sinus despite execution of >4 dry swallows to clear. The pts sensation was excellent with repeated attempts to clear residue from pharynx across trials. Use of double swallow was effective in clearing approximately 50% of residue with soft and pureed solids. Use of liquid wash further helped to clear material. Attempted use of chin tuck, thin tuck/head turn (bilaterally), and the Mark maneuver with trials of puree and thin liquids to promote pharyngeal clearance and prolong UES relaxation. Minimal improvement noted. Double swallow and liquid wash with restricted bolus sizes appeared to be the most successful strategies to support reduced pharyngeal reside and to eliminate penetration. Penetration/Aspiration Scale (PAS)*: Thin liquids (large, consecutive sips): Score of 5, contrast enters airway, contacts the vocal folds, and is not ejected. Thin liquids (post-swallow residue): Score of 3, contrast enters airway, remains above the vocal folds, and is not ejected. All other consistencies: Score of 1, contrast does not enter airway. *(Yarely et al. 1996) SUMMARY and RECOMMENDATIONS Post-Study ROSEMARY: 4 ST ASSESSMENT SUMMARY Aspiration Risk: Pt is at mild to moderately elevated risk for aspiration 2/2 medical etiology, pharyngeal weakness (posterior pharyngeal wall, hyolaryngeal complex, upper esophageal sphincter), quantity of pharyngeal residue with level of effort required to clear. The pt would benefit from intermittent supervision to ensure adherence to/recall of safe swallow strategies and diet modification recommendations. Speech Therapy Need ST will continue to analyze swallow status and evolve diet recommendations as appropriate.. ST will also continue to provide education re: aspiration precautions, safe swallow strategies, compensations, and pharyngeal exercises to minimize risk for respiratory compromise. Formal voice analysis is also recommended. RECOMMENDATIONS 1. Diet: dysphagia III, thin liquids 2. Medications: whole, with small sips of thin liquids 3. Aspiration precautions: upright with PO intake (up to chair if possible), small bites/sips, one bite/sip at a time, at least two swallows per bite/sip, alternate bites/sips, swallow with effort 4. Intermittent cueing/supervision to ensure adherence to/recall of safe swallow strategies and diet modification recommendations PLAN OF CARE 1. Patient and caregivers will receive ongoing education re: safe swallow precautions, diet modification recommendations, and compensatory techniques, and will provide verbal/visual demonstration of comprehension with 100% accuracy, min cues. 2. Patient will participate in an objective, modified barium swallow study to develop recommendations for safe PO intake, analyze physiological deficits, trial compensations, and tailor patient-specific pharyngeal exercises. MET 08/04. 3. New goal 08/04: Patient will participate in pharyngeal exercise program with min cues for appropriate technique to strengthen suprahyoid musculature, improve pharyngeal squeeze, and to promote UES relaxation for increased swallow efficiency, tolerance of least restrictive diet, and minimized risk of aspiration. Skilled Nursing Goals 1. The patient will safely and efficiently tolerate regular diet and thin liquids with independent implementation of safe swallow strategies and minimized s/s of dysphagia. Rehabilitation Prognosis: Good. Pt w/ high PLOF, strong motivation. Thank you for this referral. Please call [phone] Ivette Lange M.S., CCC-GUIDE CRUISE Speech Therapist JAD
[2018-08-04] MEDS: ACETAMINOPHEN 500 MG TAB PO PRN (11:19)
[2018-08-04] MEDS ORDERED: PROMETHAZINE 25 MG/ML 1 ML AMP IVP PRN (12:55)
[2018-08-04] MEDS ORDERED: ONDANSETRON 4 MG/2 ML VIAL IVP PRN (12:55)
--- NOTE | 2018-08-04 13:17 | RADIOLOGY IMAGING REPORT ---
FACILITY: [facility] PATIENT NAME: Elmer Varela : 1980 MR: [id number] V: [id number] EXAM DATE: ORDERING PHYSICIAN: HERBERT HOPPER TECHNOLOGIST: Location: [facility] Patient: Elmer Varela : 1980 Visit/Account:[id number] Date of Sevice: 08/04/2018 CAROTID HISTORY: stroke COMPARISON: CTA neck 08/03/2018 FINDINGS: Grayscale, duplex and color Doppler interrogation of the extracranial carotid and vertebral arteries was performed bilateral. On the right, peak systolic velocities within the common and internal carotid arteries are 124 and 62 cm/sec respectively. No significant plaque formation is identified. Doppler waveforms are within n ormal limits.. Antegrade flow within the common, internal and external carotid arteries as well as v ertebral artery. ICA/CCA ratio 0.5. On the left, peak systolic velocities within the common and internal carotid arteries are 157 and 98 cm/sec respectively. No significant plaque formation or stenosis is identified. Doppler waveforms a re within normal limits.. Antegrade flow within the common, internal and external carotid arteries a s well as vertebral artery. ICA/CCA ratio 0.7. IMPRESSION: No hemodynamically significant stenoses are identified. No significant plaque formation is identifie d. Findings are similar to recent CTA. Velocity criteria are extrapolated from diameter data as defined by the Society of Radiologists in [place] [facility] Consensus Conference Radiology 2003; 229;[id number] Report Dictated By: King Mittal at 08/04/2018 1:10 PM Report E-Signed By: King Mittal at 08/04/2018 1:13 PM WSN:MILTON
[2018-08-04] MEDS ORDERED: NEBI10TA4 PO (13:51)
[2018-08-04 19:48] VITALS: BP 144/102
[2018-08-04] MEDS ORDERED: ROSUVASTATIN CALCIUM 10 MG TAB PO SCH ×2 (21:00)
[2018-08-05 00:16] VITALS: BP 140/101
[2018-08-05 04:11] VITALS: BP 148/76
[2018-08-05 05:52] LABS: PLATELET COUNT, AUTOMATED 273 K/uL (150-450)
[2018-08-05] MEDS: ACETAMINOPHEN 500 MG TAB PO PRN (06:04)
[2018-08-05 10:00] VITALS: BP 139/103
[2018-08-05] MEDS: NEBIVOLOL HCL 5 MG TAB PO SCH (10:30)
[2018-08-05] MEDS: APIXABAN 2.5 MG TABLET PO SCH (10:32)
[2018-08-05] MEDS: ASPIRIN 81 MG CHEW PO SCH (10:33)
[2018-08-05] MEDS ORDERED: APIX2.5T PO (10:56)
[2018-08-05] MEDS ORDERED: NEBI5TAB PO (10:56)
[2018-08-05] MEDS ORDERED: ASPI-870 PO (10:56)
[2018-08-05] MEDS ORDERED: ROS10 PO (10:56)
--- NOTE | 2018-08-05 11:14 | Hospitalist Depart ---
Discharge Summary Reason for Hosp/Final Diag: (1) Arterial ischemic stroke, vertebrobasilar, brainstem, acute Status: Acute Hospital Course & Plan: The patient presented with right facial numbness/swelling, falling to the right, hoarseness, trouble swallowing, and tingling in right leg. He has a stroke in the Right lateral medullary by MRI. Dr. Smith discussed the case with neurology (Dr. Leonard Andrade) at [facility] - recommended IV heparin initially as it sounds he has had some "stuttering" symptoms and transition to Eliquis with ASA 81mg. Crestor high intensity started. Patient told that he can no longer smoke cigarettes. Transfer to [facility] for continued rehab. Consider Wellbutrin for assisting in smoking cessation and possible post stroke depression if occurs. (2) Disequilibrium Status: Acute Hospital Course & Plan: He had some difficulty with balance 6-7 days prior to admission, which started with the right ear pain/facial paresthesias. It initially improved, but worsened significantly the night of admission. He has significant nystagmus on exam. The head CT showed no abnormalities, but CTA showed small right vertebral artery - neurology believes this could represent dissection. MRI of the brain does show the right lateral medullary infarct. Continue rehab. (3) Hoarseness of voice Status: Acute Hospital Course & Plan: Rehab, stable. (4) Paresthesias Status: Acute Hospital Course & Plan: Rehab. (5) HTN (hypertension) Status: Chronic Hospital Course & Plan: Will continue chronic Bystolic, dose currently reduced over home. Departure Weight (Pounds): 234 Weight (Ounces): 8.0 Result Diagram: 08/05/1832 08/05/18 0532 Condition: Improved Discharge: Rehab Facility PT/OT Follow Up For: PT Evaluation and Treat, ST Evaluation and Treat, OT Evaluation and Treat Discharge Instructions Home Meds Reported Medications Nebivolol Hcl (BYSTOLIC) 10 Mg Tab, 10 MG PO QDAY for 90 Days, #90 TAB 08/04/18 Ibuprofen (IBUPROFEN) 200 Mg Tablet, 1 TAB PO PRN for PAIN, TAB 08/04/18 Cholecalciferol (Vitamin D3) (VITAMIN D) 1,000 Unit Capsule, 1000 UNIT PO QDAY, TAB.SL 08/04/18 Discontinued Reported Medications Ondansetron Hcl (ZOFRAN) 4 Mg Tablet, 4 MG PO Q12H, TAB 08/03/18 Sulfamethoxazole/Trimet 800-160 Mg Tab (BACTRIM DS TABLET) 1 Each Tablet, 1 TAB PO Q12H, TAB 08/03/18 Nebivolol Hcl (BYSTOLIC) 2.5 Mg Tablet, MG PO unkown dosage 08/03/18 Albuterol (Proventil Inhaler) 17 Gm Inh, 0 INH Q4H 1 1-2 PUFFS 09/07/07 Guaifenesin/Hydrocodone Bit (Hycotuss Expectorant) 480 Ml Syrup, 4 OZ PO Q4H 1, #0 ONE TSP BY MOUTH EVERY FOUR HOURS NEEDED FOR COUGH 09/07/07 Prednisone (Prednisone) 20 Mg Tab, 20 MG PO WARF for 4 Days IN THE MORNING 09/07/07 Levofloxacin (Levaquin) 500 Mg Tablet, 500 MG PO DAILY for 7 Days 09/07/07 Diet: Regular Activity: As Tolerated Venous Thromboembolism Antithrombotics Is Pt On Any Antithrombotics?: No KHADRA BHAGAT DO Aug 05, 2018 11:14
--- NOTE | 2018-08-05 12:03 | Medical Nutrition Therapy ---
Nutrition Anthropometrics Height (Inches): 77 Weight (Pounds): 234 Weight (Calculated Kilograms): 106.141 BMI: 27.7 Ulises Nutrition Score: Adequate Uilses Nutrition Risk Score: 16 Dietary Referral Nutrition Risk Factors: Diff. Swallowing Nutrition Risk Comment: Physical Findings Physical Appearance: Overweight BMI 25-29 Skin Appearance Skin Appearance: Edema Edema Location Modifier: Edema Location: Type of Edema: Degree of Edema: Gastrointestinal Symptoms GI Symtoms: Tube Present: Bowel Sounds: Recent Bowel Pattern: Stool Characteristics: Nutritional Diagnosis Nutritional Risk Acuity 2: Swallowing Problem Past Medical History: Hx hypertension, cigarette smoker (current), Vit D deficiency Nutritional Acuity: 2-Moderate Nutrition Diagnosis: Swallowing Difficulties Nutrition Etiology: Physiological Causes Nutrition Problem/Etiology/Sym: Swallowing difficulties r/t physiological causes AEB reported by pt, swollen throat, pharyngeal weakness. Energy Requirement: 2500 (M-SJ * 1.2) Protein Requirement: 120 (1.1g/kg) Fluid Requirement: 2500 (1ml/kg) Diet Type: Dysphagia Stage 3 Nutrition Intervention: Encourage intake, Incr diet as tolerated Nutrition Monitoring & Eval Nutrition Goals: Eat 75-100% Meal, Drink > 1500 cc/day RD Patient Assessment Time: [address] Assessment Type: RD Re-Assessment Patient Nutrition Acuity: 2-Moderate Follow Up Date: Aug 08, 2018 Nutritional Comment: 08/03 Pt admitted for an acute allergic reaction and disequilibrium. Updated MD note states Arterial ischemic stroke, vertebrobasilar, brainstem, acute. Hx of hypertension, cigarette smoker (current), Vit D defiency. Pt on clear liq diet due to difficulty of swallowing. Pt's throat is swollen. Pt stated to me that he was 77 inches in height, which puts his BMI at 28. Alb is WNL at 4.4. ST will evaluate for any texture consistency issues. Will follow. TB 08/04 Pt moved to Dysphagia III diet. Pt is at a mild to moderately elevated risk for aspiration. ST reports pharyngeal weakness and recommends PO at an upright position. Pt ate 10-25% of meals on 08/04; including 25% buttered toast, 25% scrambled eggs. Will keep monitoring swallowing status closely and provide correct consistency foods. Alb is steady at 4.1, BUN high at 22. Pt also T2DM, BG occasionally high, but staying WNL on avg. TB CHON MOORE Aug 05, 2018 08:10
== END 2018-08-05 12:30 | DRG 66 ==
LOC: ER 01:10 → MED 05:02
PROVIDERS: ADMIT Internal Medicine; ATTEND Internal Medicine
DX: I63.22 Cerebral infarction due to unspecified occlusion or stenosis of basilar artery (principal); F17.210 Nicotine dependence, cigarettes, uncomplicated; E87.8 Other disorders of electrolyte and fluid balance, not elsewhere classified; I10 Essential (primary) hypertension; R20.2 Paresthesia of skin; R29.703 NIHSS score 3; H55.00 Unspecified nystagmus; H66.93 Otitis media, unspecified, bilateral; Z88.2 Allergy status to sulfonamides; Z88.8 Allergy status to other drugs, medicaments and biological substances
CPT/HCPCS: 36415; 36416; 70450; 70496; 70498; 70551; 71045; 74230; 82040; 82247; 82310; 82374; 82435; 82465; 82565; 82947; 82948; 83718; 84075; 84132; 84155; 84295; 84450; 84460; 84478; 84484; 84520; 85025; 85610; 85730; 93005; 93306; 93880; 96365; 96375; 97162; 97166; 99285; J0131; J1200; J1644; J2930; J3490; J7030; J7040; J7050; J7512; Q9967

== ENCOUNTER → 2018-09-09 | Outpatient (CLI) | payer OTHER ==
[~2018-09-09] MED LIST changes: +ACYC-50 PO; +APIX2.5T PO; +APIX5TAB PO; +ASCO-182 PO; +ASPI-870 PO; +CHOL100058 PO; +DOXY50CA27 PO; +GABA-549 PO; +IBUP-56 PO; +LISI-362 PO; +MULT-1335 PO; +NEBI10TA4 PO; +NEBI2.5T PO; +NEBI5TAB PO; +ONDA4TAB97 PO; +OXYC-373 PO; +PANT40TA65 PO; +ROS10 PO; +ROSU40TA18 PO; +SULF-198 PO; +TOBR5DRO OP
[2018-09-09 09:15] LABS: PLATELET COUNT, AUTOMATED 317 K/uL (150-450)
[2018-09-09 10:03] LABS: LDL CHOLESTEROL 50 mg/dl
== END ==
LOC: LAB 08:41
PROVIDERS: ATTEND Internal Medicine
DX: R49.0 Dysphonia (principal); I63.219 Cerebral infarction due to unspecified occlusion or stenosis of unspecified vertebral artery; I10 Essential (primary) hypertension
CPT/HCPCS: 81001; 82040; 82247; 82310; 82374; 82435; 82465; 82565; 82947; 83718; 84075; 84132; 84155; 84295; 84443; 84450; 84460; 84478; 84520; 85025

== ENCOUNTER → 2018-09-09 | Outpatient (CLI) | payer OTHER | LOC: LAB 08:37 | PROVIDERS: ATTEND Physician Assistant | DX: I63.211 Cerebral infarction due to unspecified occlusion or stenosis of right vertebral artery (principal); I63.22 Cerebral infarction due to unspecified occlusion or stenosis of basilar artery | CPT/HCPCS: 36415; 81240; 81241; 83090; 85303; 85306; 85307; 85384; 86146; 86147 ==

== ENCOUNTER 2018-09-29 10:39 | Emergency (ER) | payer OTHER ==
--- NOTE | 2018-09-29 10:51 | ER Report ---
History and Physical Time Seen By MD: 10:51 Hx. of Stated Complaint: shortness of breathe since last night HPI/ROS CHIEF COMPLAINT: Short of breath HISTORY OF PRESENT ILLNESS: This is a 38 year old male. He has some shortness of breath, starting last night. This has continued this morning, but not as bad. Has some chest pressure in the upper chest and neck area associated. He had a procedure by Dr. Childress yesterday where a filling substance was injected into paralyzed right vocal cord to help with his speech. He went to speech therapy this morning. He feels like his gasping that has been chronic for him is actual ly better. Blood pressure has been higher than normal. No changes with bowel and bladder function. Allergies: Coded Allergies: propranolol (Verified Allergy, Intermediate, 09/29/18) FACE SWELLING varenicline (Verified Allergy, Mild, 09/29/18) FACE SWELLING Home Meds Active Scripts Prednisone (PREDNISONE) 20 Mg Tablet, 60 MG PO QDAY for 5 Days, #15 TAB 0 Refills Prov:RAFAL SMITH MD 09/29/18 Pantoprazole Sodium (PANTOPRAZOLE SODIUM) 40 Mg Tablet.dr, 1 TAB PO QDAY, #90 TAB.SR 1 Refill Prov:RAMBO SMITH MD 08/31/18 Gabapentin (GABAPENTIN) 300 Mg Capsule, 1 CAP PO QID, #120 CAPSULE 3 Refills Take 1 in a.m., 1 at known and 2 at night Prov:RAMBO SMITH MD 08/31/18 Lisinopril (LISINOPRIL) 10 Mg Tablet, 1 TAB PO QDAY, #90 TAB 1 Refill Prov:RAMBO SMITH MD 08/31/18 Rosuvastatin Calcium (CRESTOR) 40 Mg Tablet, 40 MG PO QDAY, #90 TAB 1 Refill Prov:RAMBO SMITH MD 08/31/18 Apixaban (ELIQUIS) 5 Mg Tablet, 5 MG PO BID, #180 TAB 1 Refill Prov:RAMBO SMITH MD 08/31/18 Oxycodone Hcl/Acetaminophen (OXYCODONE-ACETAMINOPHEN 5-325) 1 Each Tablet, 1 TAB PO BID PRN for PAIN, #15 TAB Prov:RAMBO SMITH MD 08/31/18 Aspirin (Children's Aspirin) 81 Mg Tab.chew, 81 MG PO QDAY for 30 Days, TAB.CHEW Prov:KHADRA BHAGAT DO 08/05/18 Reported Medications Acyclovir (ACYCLOVIR) 400 Mg Tablet, 400 MG PO 5XD, TAB 08/31/18 Ascorbic Acid (VITAMIN C) 500 Mg Tablet, 1 TAB PO QDAY, TAB 08/30/18 Multivitamin With Minerals (MULTIPLE VITAMIN) 1 Each Tablet, 1 TAB PO QDAY, TAB 08/30/18 Doxycycline Hyclate (DOXYCYCLINE HYCLATE) 50 Mg Capsule, 1 CAP PO BID, CAPSULE 08/30/18 Cholecalciferol (Vitamin D3) (VITAMIN D) 1,000 Unit Capsule, 1000 UNIT PO QDAY, TAB.SL 08/04/18 Discontinued Reported Medications Tobramycin (TOBRAMYCIN) 5 Ml Drops, 5 ML OP 08/31/18 Reviewed Nurses Notes: Yes Hx Smoking: Yes (1ppd) Smoking Status: Former Smoker Hx Substance Use Disorder: Yes (rare use of marijuana, no other drugs.) Hx Alcohol Use: Yes (occasional use) Constitutional Vital Sign - Last 24 Hours 09/29/18 09/29/18 09/29/18 09/29/18 10:39 10:44 10:47 11:00 Temp 98.2 Pulse 91 93 Resp 12 B/P (MAP) 154/112 (126) 154/112 141/107 (118) Pulse Ox 89 91 O2 Delivery Room Air 09/29/18 09/29/18 09/29/18 09/29/18 11:09 11:30 11:44 11:49 Pulse 89 79 86 Resp 9 12 12 B/P (MAP) 123/98 (106) Pulse Ox 91 92 84 09/29/18 09/29/18 09/29/18 09/29/18 12:00 12:05 12:11 12:30 Pulse 94 78 Resp 17 12 B/P (MAP) 146/101 (116) 129/90 (103) Pulse Ox 89 86 09/29/18 09/29/18 09/29/18 09/29/18 12:35 12:40 12:45 13:00 Pulse 90 80 87 95 Pulse Ox 91 93 91 93 09/29/18 09/29/18 09/29/18 09/29/18 13:30 13:33 13:45 14:00 Pulse 97 98 85 B/P (MAP) 149/112 (124) 135/114 (121) 149/96 (113) Pulse Ox 88 90 86 Physical Exam General Appearance: The patient is alert. No acute distress. Eyes: Pupils are equal, round. No pallor, injection or icterus. ENT: Mucous membranes are moist. Normal oral mucosa. Posterior oropharynx is normal other than the paralysis. No masses or swelling noted. No lymphadenopathy noted. Normal nasal mucosa. Normal tympanic membranes and canals. Neck: Supple and non tender. Respiratory: Breathing easily and unlabored. Lungs are clear to auscultation. Cardiovascular: Regular rate and rhythm. No murmurs, gallops or rubs. Normal capillary refill. No edema. Gastrointestinal: Abdomen is soft and non tender. Nondistended. Normal active bowel sounds. Neurological: Alert and oriented x3. Right sided symptoms of facial, eye and vocal cord paralysis. Right sided extremity symptoms of some weakness and numbness unchanged. Skin: Warm and dry. Musculoskeletal: Extremities are nontender. No tenderness in palpation of the cervical, thoracic and lumbar spine. DIFFERENTIAL DIAGNOSIS: After history and physical exam, differential diagnosis was considered for shortness of breath including but not limited to pulmonary infectious process, anesthesia or procedure effects from yesterday, acute cor onary, pulmonary embolus and congestive heart failure. Medical Decision Making Data Points Result Diagram: 09/29/18 1052 09/29/18 1052 Laboratory Hematology Test 09/29/18 10:52 Red Blood Count 5.21 M/uL (4.00-5.60) Mean Corpuscular Volume 94.9 fL (80.0-96.0) Mean Corpuscular Hemoglobin 32.0 pg (26.0-33.0) Mean Corpuscular Hemoglobin Concent 33.7 g/dL (32.0-36.0) Red Cell Distribution Width 14.6 % (11.5-14.5) Mean Platelet Volume 8.2 fL (7.2-11.1) Neutrophils (%) (Auto) 56.0 % (39.4-72.5) Lymphocytes (%) (Auto) 30.4 % (17.6-49.6) Monocytes (%) (Auto) 11.4 % (4.1-12.4) Eosinophils (%) (Auto) 1.8 % (0.4-6.7) Basophils (%) (Auto) 0.4 % (0.3-1.4) Nucleated RBC Relative Count (auto) 0.0 /100WBC Neutrophils # (Auto) 6.8 K/uL (2.0-7.4) Lymphocytes # (Auto) 3.7 K/uL (1.3-3.6) Monocytes # (Auto) 1.4 K/uL (0.3-1.0) Eosinophils # (Auto) 0.2 K/uL (0.0-0.5) Basophils # (Auto) 0.1 K/uL (0.0-0.1) Nucleated RBC Absolute Count (auto) 0.00 K/uL D-Dimer Quantitative (PE/DVT) < 0.27 ug/ml (0-0.50) Sodium Level 137 mmol/L (137-145) Potassium Level 4.5 mmol/L (3.5-5.0) Chloride Level 103 mmol/L (98-107) Carbon Dioxide Level 26 mmol/L (22-30) Blood Urea Nitrogen 15 mg/dl (9-21) Creatinine 0.80 mg/dl (0.66-1.25) Glomerular Filtration Rate Calc > 60.0 Random Glucose 109 mg/dl (75-110) Calcium Level 9.1 mg/dl (8.4-10.2) Magnesium Level 2.1 mg/dl (1.7-2.2) Total Bilirubin 1.2 mg/dl (0.2-1.3) Aspartate Amino Transf (AST/SGOT) 39 U/L (0-35) Alanine Aminotransferase (ALT/SGPT) 65 U/L (0-56) Alkaline Phosphatase 65 U/L (0-126) Troponin I < 0.012 ng/ml B-Type Natriuretic Peptide 17 pg/ml (0-100) Total Protein 6.8 g/dl (6.3-8.2) Albumin 4.2 g/dl (3.5-5.0) Chemistry Test 09/29/18 10:52 White Blood Count 12.1 k/uL (4.5-11.0) Red Blood Count 5.21 M/uL (4.00-5.60) Hemoglobin 16.6 g/dL (14.0-18.0) Hematocrit 49.4 % (42.0-52.0) Mean Corpuscular Volume 94.9 fL (80.0-96.0) Mean Corpuscular Hemoglobin 32.0 pg (26.0-33.0) Mean Corpuscular Hemoglobin Concent 33.7 g/dL (32.0-36.0) Red Cell Distribution Width 14.6 % (11.5-14.5) Platelet Count 288 K/uL (150-450) Mean Platelet Volume 8.2 fL (7.2-11.1) Neutrophils (%) (Auto) 56.0 % (39.4-72.5) Lymphocytes (%) (Auto) 30.4 % (17.6-49.6) Monocytes (%) (Auto) 11.4 % (4.1-12.4) Eosinophils (%) (Auto) 1.8 % (0.4-6.7) Basophils (%) (Auto) 0.4 % (0.3-1.4) Nucleated RBC Relative Count (auto) 0.0 /100WBC Neutrophils # (Auto) 6.8 K/uL (2.0-7.4) Lymphocytes # (Auto) 3.7 K/uL (1.3-3.6) Monocytes # (Auto) 1.4 K/uL (0.3-1.0) Eosinophils # (Auto) 0.2 K/uL (0.0-0.5) Basophils # (Auto) 0.1 K/uL (0.0-0.1) Nucleated RBC Absolute Count (auto) 0.00 K/uL D-Dimer Quantitative (PE/DVT) < 0.27 ug/ml (0-0.50) Glomerular Filtration Rate Calc > 60.0 Calcium Level 9.1 mg/dl (8.4-10.2) Magnesium Level 2.1 mg/dl (1.7-2.2) Total Bilirubin 1.2 mg/dl (0.2-1.3) Aspartate Amino Transf (AST/SGOT) 39 U/L (0-35) Alanine Aminotransferase (ALT/SGPT) 65 U/L (0-56) Alkaline Phosphatase 65 U/L (0-126) Troponin I < 0.012 ng/ml B-Type Natriuretic Peptide 17 pg/ml (0-100) Total Protein 6.8 g/dl (6.3-8.2) Albumin 4.2 g/dl (3.5-5.0) Coagulation Test 09/29/18 10:52 D-Dimer Quantitative (PE/DVT) < 0.27 ug/ml EKG/Imaging EKG Interpretation 12 lead EKG: Rhythm: Sinus tachycardia, rate 105, frequent PVCs [place]: normal QRS: normal ST segments: normal Imaging EXAMINATION: Portable AP Chest HISTORY: Respiratory distress COMPARISON: 08/03/2018. FINDINGS: The lungs are clear. No focal consolidation or pleural effusion. No pneumothorax. Normal cardiomediastinal silhouette, with normal heart size and pulmonary vascularity. Visualized osseous structures are unremarkable. IMPRESSION: No evidence of acute cardiopulmonary disease. Report Dictated By: Jayant Childress MD at 09/29/2018 12:[address] CTA CHEST W & W/O CON HISTORY: short of breath, hypoxia ADDITIONAL HISTORY: None. TECHNIQUE: CTA chest with intravenous contrast. Axial imaging acquired fo llowing administration of IV contrast timed for maximum opacification of the pulmonary arterial vasculature. Slab 3-D MIP reconstructed images were also created for further evaluation and interpretation. Reconstruction of the source data set includes multiplanar 2-D in the sagittal and coronal planes and 3-D reconstructed coronal slab MIP series. 3-D images were created by the technologist.Dose Lowering Technique One of the following dose optimization techniques was utilized in the performan ce of this exam: Automated exposure control; adjustment of the mA and/or kV according to the patient's size; or use of an iterative reconstruction technique. Specific details can be referenced in the facility's radiology CT exam operational policy. CONTRAST: 75 mL Isovue-370 COMPARISON: September 05, 2007 FINDINGS: Lungs/pleura: There mild dependent changes in the lower lung loving Heart/vessels: Contrast bolus to the distal pulmonary arterial branches somewhat limited although there is no evidence of pulmonary emboli in the central, lobar or segmental pulmonary arteries. Mediastinum/lymph nodes: Negative. Visualized upper abdomen: Negative. Bones/soft tissues: Negative. Additional findings: None IMPRESSION: No evidence of pulmonary emboli to the central, lobar or segmental pulmonary arteries Mild dependent changes in the lower lung loving Report Dictated By: Eva Prieto MD at 09/29/2018 1:52 PM ED Course/Re-evaluation Clinical Indication for ER IV: IV Access ED Course Initial labs unremarkable other than mild elevation of white count. No fevers. Oxygen normal when awake, but desaturates with sleeping or supine position when resting. Chest x-ray negative. CTA done for possible PE which was negative other than mild dependent inflammatory changes. Discussed all this with the patient an d . Also contacted Dr. Childress prior to the CTA. At this point we are going to start a Prednisone burst to see if this helps and start oxygen when sleeping or resting. He has follow-up with Dr. Smith and Dr. Childress upcoming. Gave instructions on signs/symptoms to watch for that would be worrisome for developing a pneumonia. Consider aspiration as possibility which they are already watching at this point. Decision to Disposition Date: Sep 29, 2018 Decision to Disposition Time: 14:07 Depart Departure Latest Vital Signs Vital Signs Date Time Temp Pulse Resp B/P (MAP) Pulse Ox O2 Delivery O2 Flow Rate FiO2 09/29/18 14:00 85 149/96 (113) 86 09/29/18 12:11 12 09/29/18 10:47 98.2 Room Air Impression: Primary Impression: Hoarseness of voice Additional Impressions: HTN (hypertension) Arterial ischemic stroke, vertebrobasilar, brainstem, acute Hypoxia Condition: Improved Disposition: HOME OR SELF-CARE Referrals: RAMBO SMITH MD (PCP) New Scripts Prednisone (PREDNISONE) 20 Mg Tablet 60 MG PO QDAY for 5 Days, #15 TAB 0 Refills Prov: RAFAL SMITH MD 09/29/18 Departure Forms: Home Oxygen, Nebulizer RX Durable Medical Equipment- Oxygen: Oxygen Concentrator Reason for Use/Diagnosis: Hypoxia, right sided paralysis, stroke Start Date of the Order: Sep 29, 2018 Dosage or Concentration (if applicable) - LPM: 2 Route of Administration (if applicable): Nasal Cannula Frequency of Use: While Sleeping Duration Home O2 Required: 6 Duration Units: Weeks Room Air Oxygen Saturation: 83 ER Prescribing Physician's Name: Rafal Smith NPI Numbers for Local ER MDs: Sarah [id number] Patient Instructions: Effects of a Stroke (DC), Hypoxia (ED) Additional Instructions: Wear oxygen 2 liters nasal cannula while resting or sleeping. Follow-up with Dr. Childress and Dr. Smith as planned. Watch for fevers/chills, worsening breathing or cough and re-evaluation as needed. Problem Qualifiers Additional Impressions: HTN (hypertension) Hypertension type: essential hypertension Qualified Codes: I10 - Essential (primary) hypertension Arterial ischemic stroke, vertebrobasilar, brainstem, acute Laterality: right Qualified Codes: I63.211 - Cerebral infarction due to unspecified occlusion or stenosis of right vertebral artery; I63.22 - Cerebral infarction due to unspecified occlusion or stenosis of basilar artery RAFAL SMITH MD Sep 29, 2018 10:51
[2018-09-29 11:18] LABS: PLATELET COUNT, AUTOMATED 288 K/uL (150-450)
--- NOTE | 2018-09-29 11:50 | EKG ---
FACILITY: [facility] PATIENT NAME: FE AQUINO : [id number] MR: [id number] V: [id number] EXAM DATE: ORDERING PHYSICIAN: STACY LERNER TECHNOLOGIST: NAMRATA Test Reason : SOB Blood Pressure : / mmHG Vent. Rate : 105 BPM Atrial Rate : 105 BPM P-R Int : 150 ms QRS Dur : 094 ms QT Int : 350 ms P-R-T Axes : 051 -29 010 degrees QTc Int : 462 ms Sinus tachycardia with frequent premature ventricular complexes Possible biatrial enlargement Poor R wave progression anteriorly Abnormal ECG Confirmed by HERBERT OHPPER ([id number]) on 09/29/2018 2:43:22 PM Referred By: YANN Confirmed By:HERBERT HOPPER
--- NOTE | 2018-09-29 12:15 | RADIOLOGY IMAGING REPORT ---
FACILITY: [facility] PATIENT NAME: Elmer Varela : 1980 MR: [id number] V: [id number] EXAM DATE: ORDERING PHYSICIAN: STACY LERNER TECHNOLOGIST: Location: [facility] [place] Patient: Elmer Varela : 1980 Visit/Account:[id number] Date of Sevice: 09/29/2018 EXAMINATION: Portable AP Chest HISTORY: Respiratory distress COMPARISON: 08/03/2018. FINDINGS: The lungs are clear. No focal consolidation or pleural effusion. No pneumothorax. Normal cardiomedi astinal silhouette, with normal heart size and pulmonary vascularity. Visualized osseous structures are unremarkable. IMPRESSION: No evidence of acute cardiopulmonary disease. Report Dictated By: Jayant Childress MD at 09/29/2018 12:06 PM Report E-Signed By: Jayant Childress MD at 09/29/2018 12:10 PM WSN:[id number]
[2018-09-29] MEDS ORDERED: NS(*) 0.9% 50 ML BAG 50 ML ONE (12:45)
[2018-09-29] MEDS ORDERED: IOPAMIDOL 76% 75 ML INFUS BTL 75 ML ONE (12:45)
[2018-09-29 14:00] VITALS: BP 149/96
--- NOTE | 2018-09-29 14:00 | RADIOLOGY IMAGING REPORT ---
FACILITY: [facility] PATIENT NAME: Elmer Varela : 1980 MR: [id number] V: [id number] EXAM DATE: ORDERING PHYSICIAN: STACY LERNER TECHNOLOGIST: [place] [facility] [place]: [place] V[place] : 1980 Visit/Account:[id number] Date of Sevice: 09/29/2018 CT CTA CHEST W & W/O CON HISTORY: short of breath, hypoxia ADDITIONAL HISTORY: None. TECHNIQUE: CTA chest with intravenous contrast. Axial imaging acquired following administration of IV contrast timed for maximum opacification of the pulmonary arterial vasculature. Slab 3-D MIP kenn nstructed images were also created for further evaluation and interpretation. Reconstruction of the [facility] data set includes multiplanar 2-D in the sagittal and coronal planes and 3-D reconstructed wiliam nal slab MIP series. 3-D images were created by the technologist.Dose Lowering Technique One of the following dose optimization techniques was utilized in the performance of this exam: Autom ated exposure control; adjustment of the mA and/or kV according to the patient's size; or use of an i terative reconstruction technique. Specific details can be referenced in the facility's radiology C T exam operational policy. CONTRAST: 75 mL Isovue-370 COMPARISON: September 05, 2007 FINDINGS: Lungs/pleura: There mild dependent changes in the lower lung loving Heart/vessels: Contrast bolus to the distal pulmonary arterial branches somewhat limited although th ere is no evidence of pulmonary emboli in the central, lobar or segmental pulmonary arteries. Mediastinum/lymph nodes: Negative. Visualized upper abdomen: Negative. Bones/soft tissues: Negative. Additional findings: None IMPRESSION: No evidence of pulmonary emboli to the central, lobar or segmental pulmonary arteries Mild dependent changes in the lower lung loving Report Dictated By: Eva Prieto MD at 09/29/2018 1:52 PM Report E-Signed By: Eva Prieto MD at 09/29/2018 1:55 PM WSN:[email or web address]
[2018-09-29] MEDS ORDERED: PRED20TA6 PO (14:26)
== END 2018-09-29 14:27 | disposition home or self-care (01) ==
LOC: ER 10:57
DX: R49.0 Dysphonia (principal); I63.211 Cerebral infarction due to unspecified occlusion or stenosis of right vertebral artery; I63.22 Cerebral infarction due to unspecified occlusion or stenosis of basilar artery; I10 Essential (primary) hypertension; R09.02 Hypoxemia
CPT/HCPCS: 71045; 71275; 83735; 83880; 84484; 85025; 85379; 93005; 99284; J7050; Q9967; 82040; 82247; 82310; 82374; 82435; 82565; 82947; 84075; 84132; 84155; 84295; 84450; 84460; 84520

== ENCOUNTER → 2018-10-04 | Outpatient (CLI) | payer OTHER ==
[~2018-10-04] MED LIST changes: +DULO30CA35 PO; +DULO60CA56 PO; +GABA-533 PO; +LISI20TA29 PO; +PRED20TA6 PO
== END ==
LOC: RESP 01:53
PROVIDERS: ATTEND Internal Medicine
DX: G47.33 Obstructive sleep apnea (adult) (pediatric) (principal); G47.37 Central sleep apnea in conditions classified elsewhere

== ENCOUNTER → 2018-10-19 | Outpatient (CLI) | payer OTHER ==
[2018-10-19 09:08] LABS: PLATELET COUNT, AUTOMATED 263 K/uL (150-450)
[2018-10-19 09:55] LABS: LDL CHOLESTEROL 49 mg/dl
== END ==
LOC: LAB 08:53
PROVIDERS: ATTEND Internal Medicine
DX: F41.9 Anxiety disorder, unspecified (principal); I63.211 Cerebral infarction due to unspecified occlusion or stenosis of right vertebral artery; I10 Essential (primary) hypertension; B02.30 Zoster ocular disease, unspecified
CPT/HCPCS: 36415; 81001; 82040; 82247; 82310; 82374; 82435; 82465; 82565; 82947; 83718; 84075; 84132; 84155; 84295; 84443; 84450; 84460; 84478; 84520; 85025

== ENCOUNTER 2018-11-18 09:45 | Outpatient (RCR) | payer OTHER ==
--- NOTE | 2018-08-24 11:27 | OT INITIAL EVALUATION ---
SUBJECTIVE: Patient is a 38 year old right hand dominant male being seen by OP OT services s/p CVA of the lateral right side of the brainstem. This CVA occurred approximately 08/03/2018 after several days of the patient being treated for a double ear infection. Patient's symptoms of what he thought was an allergic reaction to antibiotics included an increase in vertigo, double vision, weakness, right sided sensory changes, and hoarseness in voice production. Patient was admitted to [facility] and a CVA of the brainstem (Wallenberg's Signs). Patient was transferred to [facility] where patient received additional rehab. Patient was discharged home on 08/19/2018 to continue with OP OT and PT services. Patient was independent with self cares prior and reports that he is able to complete all self cares without assistance. His is present for bathing. During the evaluation patient was emotional when talking about his symptoms and how he is feeling. Patient appears to have excellent support from his family. 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 [employer] OBJECTIVE: ROM: AROM Right Left Shoulder Flexion WNL WNL Shoulder Extension WNL WNL Shoulder Abduction WNL WNL Elbow Flexion/Extension WNL WNL Wrist Flexion/Extension WNL WNL extra time needed for the patient to perform elbow and write flexion/extension Strength: MMT: Right Left Shoulder Flexion 4/5 5/5 Shoulder Extension 4/5 5/5 Shoulder Abduction 4/5 5/5 Elbow Flexion/Extension 4/5 5/5 Wrist Flexion/Extension 4/5 5/5 (5= normal, 4= good, 3= fair, 2= poor, 1= trace) Instructional Support Assistant Right = 76.7# (Age/gender normative= 116.8#) Left= 72# (Age/gender normative= 112.8#) Lateral Pinch Right = 23.7# (Age/gender normative= 25.6#) Left= 21.3# (Age/gender normative= 25.1#) 3 Point Pinch Right =19# (Age/gender normative= 24.5#) Left= 19.3# (Age/gender normative= 24.8#) Sensation: This is a significant deficit area for the patient. He is experiencing temperature differences on the left side for hot and cold. Numbness and decreased sensation on the right side. Hypersensitivity all along the left side. Increase in sweating on the left side of the body and none on the right side. Pins and needles feelings on the left hand. Vision: Double vision has resolved. Currently the right eye is sweeping, red, and swollen from a possible eye infections from a scratched cornea as the patient was rubbing his eye and couldn't feel how hard he was rubbing his eye due to decreased sensation. Patient has been seen by an condominium property manager. Patient being treated with antibiotics. There is the possibility that the patient may need to have surgery in the future to repair his vision. Special Test: 9 Hole Peg Test (dexterity) Right= 27 seconds (Age/gender normative= 17.7 seconds) Left= 24 seconds (Age/gender normative= 18.9 seconds) ASSESSMENT Patient demonstrates with a significant dysfunction of his sensory system for the right and left sides. This appears to be more frustrating to the patient than any of his other deficits or symptoms. 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 Patient does not appear to be having difficulty with ADLs. Patient would benefit from skilled OT services to increase strength and endurance and help to decreased sensory deficits. Short Term Goals 1.Patient will increase sail lay out worker strength on the right and left hands by 5# in order to complete ADLs 2.Patient will increase lateral pinch on the right and left hands by 3 # in order to complete ADLs. 3.Patient will be decrease time on the 9 Hole Peg Test of the right hand by 8 seconds in order to complete ADLs in a timely manner. 4. Patient will report of decreased hypersensitivity of the left side of the body. 5. Patient will report of decreased numbness of the right side of the body. PLAN: Plan to see patient 2 times a week for 12 weeks to increase strength and endurance and to help with sensation deficits. Plan of Care to include-ther ex, ther act, e-stim, paraffin, hot packs, cold packs, energy conservation, self cares. Thank you for this referral. If you have any questions, concerns, or comments about this report or plan, please contact me at [phone]. Maritza Cantu MS, OTR/L Occupational Therapist JAD
--- NOTE | 2018-08-24 18:04 | PT INITIAL EVALUATION ---
MEDICAL DIAGNOSIS: Acute ischemic vertebrobasilar artery brainstem stroke, right TREATMENT DIAGNOSIS: same, decreased gait, balance, strength, and endurance DATE OF ONSET: 08/03/18 SUBJECTIVE: Elmer Varela presents to physical therapy status post acute ischemic vertebrobasilar artery brainstem stroke on the July. This CVA occurred approximately 08/03/2018 after several days of the patient being treated for a double ear infection. Patient's symptoms of what he thought was an allergic reaction to antibiotics included an increase in vertigo, double vision, weakness, right sided sensory changes, and hoarseness in voice production. Patient was admitted to [facility] and a CVA of the brainstem (Wallenberg's Signs). Patient was transferred to [facility] where patient received additional rehab. Patient was discharged home on 08/19/2018 to continue with OP OT and PT services. Patient was independent with self cares prior and reports that he is able to complete all self cares without assistance. He reports that he was independent with ambulation prior to the injury. During the evaluation patient was emotional when talking about his symptoms and how he is feeling. Patient appears to have excellent support from his family. Furthermore, he reports that he had had neck pain that radiates down into his R shoulder blade. He reports that his neck pain is the most bothersome symptom right now. He reports that he would like to get back his independence with ambulation, driving, working, talking, and helping out with his two kids. He denies any dizziness or headaches. He reports that he has stairs in his house but is doing well and denies any recent falls since returning home. He reports that he tries to walk and stay active as possible at home and feels like he has improved since returning home. He reports that he works for [employer], which requires him to drive, talking, and utilize a computer. He rates his neck pain to be 3-4/10. . He also reports that he feels like he has to concentrate on his eating while breathing since it does not feel like it is coming naturally and no longer has that involuntary response. Pain location is C6-7 with radiating pain to inferior, medially, and lateral scapulae and described as achy. Pain scale is 4 on a ten point pain scale. REHAB PROBLEM LIST: Increased Pain Decreased ROM Decreased Strength Impaired Transfers Decreased Endurance Decreased Balance Decreased Function Decreased ADL's Decreased Mobility Decreased Gait PREVIOUS MEDICAL HISTORY: See EMR OCCUPATION: [employer] OBJECTIVE: Posture: He demonstrates minimal forward head, minimal rounded shoulders, minimal increased in thoracic kyphosis, and normal lumbar lordosis. ROM: Cervical AROM: flexion, protrusion, retraction, extension: NIL with normal end feels. R rotation, L rotation, R side bending, L side bending: minimal restriction with painful end feels. Strength: L hip flexion, abduction, adduction, L knee flexion and extension, L ankle PF and DF: 5/5 with no pain. R hip flexion, abduction, R knee flexion and extension, R ankle PF and DF: 4/5 to 4+/5 with no pain. Palpation: TTP: C6-7 spinous process with radiating pain to tip of R shoulder, inferior, lateral, medial, and superior borders of his R scapulae. Special Tests: Repeated cervical RET: increased pain during the motion with centralizing pain. Repeated cervical RET with extension: increased pain during the motion with centralizing pain. With sit to/from standing: he demonstrated increased R LE weightbearing and decreased L LE weightbearing during the transfer. Mobility: Modified independent Gait: With FWW: he demonstrated the following gait mechanics: increased base of support, normal B step clearance, decreased velocity, no LOB, decreased pelvic rotation; however, he did demonstrate minimal to moderate incoordination especially when moving from sitting to standing and with standing to sitting or performing transfers from one chair to the other chair. Balance: Firm surface, eyes opened, normal base of support: 60 seconds with mild sway. Firm surface, eyes opened, decreased base of support: 60 seconds with mild sway. Firm surface, eyes closed, normal base of support: 60 seconds with moderate sway (able to self adjust without any outside assistance). Firm surface, eyes closed, decreased base of support: 60 seconds with moderate sway( able to self adjust without any outside assistance). Compliant surface, eyes opened, normal base of support: 60 seconds with moderate sway. Compliant surface, eyes closed, normal base of support: 45 seconds with moderate sway. Complaint surface, eyes opened, decreased base of support: 60 seconds with moderate sway. Compliant surface, decreased base of support, and eyes closed: 45 seconds with increased sway. Tandem stance, complaint surface, eyes opened with R and L forward: 30 seconds with moderate to severe sway. Other Objective Findings: Initial BP: 144/ 100. Post BP: 138/98. HR: 91 bpm. ASSESSMENT: Elmer will benefit from skilled physical therapy addressing the listed impairments to improve function and return to prior level of function. Short Term Goals 2 weeks: Pt will demonstrate centralized neck pain to improve function and QOL. 4 weeks: Pt will demonstrate abolished neck pain to improve function and QOL. 8 weeks: Pt will be able to ambulate independently to improve function and QOL. 8 weeks: Pt will demonstrate minimal sway with balance in all conditions to improve function and QOL. 8 weeks: Pt will improve L LE strength from baseline to 5/5 to improve function and QOL. Patient's Goals walking without the walking and be able to walk around the block, get back to help with the kids, and get back to work. PLAN: Patient to be seen for Manual Therapy/STM/MET Strengthening/condition Range of Motion Spinal Stabilization Work Hardening/Cond Stretching Neuromuscular Re-ed Closed Chain Program Posture/Body mechanics Gait Trg/Balance Trg Home Exercise Program Therapeutic Activities 3x/Week for 2 Months If you have any questions, comments, or concerns about this report or plan, please contact me at . Thank you, Pa Saavedra, PT, DPT MTDD
--- NOTE | 2018-09-02 13:31 | SWALLOW EVALUATION ---
SPEECH THERAPY ASSESSMENT Physician: Dr. Luis Angel Newell Clinician: Mariah Espinal MS, CCC-[employer] Type of Assessment: Dysphagia Evaluation Patient: Elmer Varela : 1980, 38yrs Evaluation Date: 09-02-18 BACKGROUND Mr. Varela is a 38yo R-hand dominant male referred to ST s/p CVA of the R-side brainstem. This CVA occurred 08/03/2018. Prior to the stroke the patient was being treated for a double ear infection. He experienced symptoms including vocal changes, vertigo, double vision, weakness, and bilateral sensory changes. He believed symptoms were the result of an allergic reaction to antibiotics. Patient is dx with Wallenberg's Signs. He reports sensory symptoms have recently changed with increased tingling in R-side hand. Mr. Varela received ST, OT, PT in [facility]. He was discharged home on 08/19/2018. He reports no speech/language deficits and informal ST assessment supports this. He continues to experience dysphonia and dysphagia. Pharyngeal dysphagia symptoms are present including globus sensation and food sticking R-side. An MBS on 08/04/18 provided the following results: Results of MBS 08/04/18 Patients oral phase is within normal limits (WNL) with adequate strength, range of motion, speed and coordination of all oral musculature for timely and complete mastication, appropriate bolus formation, good bolus control, and efficient anterior to posterior transit in oral cavity. Initiation of the pharyngeal swallow was variable, ranging from the base of the tongue to the level of the pyriforms with the thin liquid component during mastication of solids with trials of mixed textures. This delay is considered a normal deviation, and sensation appeared otherwise intact. During pharyngeal swallow onset, the pts superior hyolaryngeal movement was diminished with subsequent reduction in epiglottic inversion and incomplete closure of the laryngeal vestibule. This resulted in penetration of large volumes of thin liquids during the swallow to the level of the vocal folds without complete ejection (PAS 5). Penetration above the vocal folds was also witnessed with residual thin liquids (PAS 3), and the trace amount of material remained in the laryngeal vestibule. The pts sluggish and reduced superior hyolaryngeal movement resulted in decreased epiglottic inversion with moderate residue in the vallecular space. This also likely contributed to reduced opening of the upper esophageal sphincter with moderate to severe residue in the pyriform sinuses. Diminished pharyngeal stripping waveform further resulted in reduced pharyngeal clearance. The amount of residue increased in quantity in correlation with the size of the bolus, and with hard, crunchy textures. With hard, crunchy solids, 90% of material remained in the pyriform sinus despite execution of >4 dry swallows to clear. The pts sensation was excellent with repeated attempts to clear residue from pharynx across trials. Use of double swallow was effective in clearing approximately 50% of residue with soft and pureed solids. Use of liquid wash further helped to clear material. Mr. Varela reports symptoms have improved somewhat over the last month. He no longer requires direct supervision with meals. He reports independently using strategies to manage symptoms including alternating food/liquid, effortful and repeat swallow. R-side pharyngeal stasis persists as reported by the patient. He continues to experience respiratory/swallow discoordination. Vocal symptoms persist and the patient is mostly aphonic with intermittent hoarse voice. 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 Vocal fold medialization surgery is tentatively scheduled for approximately 90 days post ENT visit if symptoms are not improved (the patient was unsure of exact visit date). The patient feels he has had some minor vocal improvement and his family agrees. He would like to continue with ST and avoid surgery if possible. Oral Motor Exam Symmetry: mild R-side facial droop at rest, L-side Lingual deviation is resolved. R-side uvula deviation resolved. Disordered respiratory/swallow/speech coordination Bilateral sensory deficits L-side disordered sensory recognition particularly for thermal stimulation. R- side facial numbness. Pt reports some recent sensory changes on R-side and he now experiences an intermittent tingling sensation. FOOD/LIQUID TRIALS Thin liquids: Carbonated liquids are more successful than noncarbonated as they increase sensory awareness within the oral cavity. Moderate anterior loss present on 2/3 trials. No coughing/choking. No oral residue. Solids: Results were similar for both mechanical soft and regular foods trials. Pt reported pharyngeal stasis with both. He independently used strategies including multiple swallow and liquids wash to clear stasis which he felt was ultimately successful. He reports independently using strategies at home to manage symptoms including alternating food/liquid, effortful and repeat swallow. R-side pharyngeal stasis persists as reported by the patient. He continues to experience respiratory/swallow discoordination further increasing aspiration risk. EATING ASSESSMENT TOOL (EAT 10) : a patient self-scored rating scale of swallowing problems. Possible responses are based on a 1-4 numeric scale with 0= no problem, 4=severe problem. 1. My swallowing problem has caused me to lose weight. 1 2. My swallowing problem interferes with my ability to go out for meals. 4 3. Swallowing liquids takes extra effort. 3 4. Swallowing solids takes extra effort. 3 5. Swallowing pills takes extra effort. 3 6.Swallowing is painful 0 7. The pleasure of eating is affected by my swallowing. 4 8. When I swallow, food sticks in my throat. 4 9. I cough when I eat. 1 10. Swallowing is stressful. 4 Total Score: 27/ 40 A score of 3 or higher may indicate a swallowing problem. SUMMARY and SPEECH THERAPY NEED Mr. Varela presents with moderate pharyngeal dysphagia and severe vocal deficits. A paralyzed R-side vocal fold (as dx by his ENT) is likely a significant contributing factor. However, decreased pharyngeal movement, hyolaryngeal and cricopharyngeal dysfunction, as well as poor respiratory coordination with speech and swallow are also likely contributors. Speech therapy is medically necessary for patient to return to PLOF by addressing swallowing and voice deficits both of which have a severe impact on the patients swallow safety, overall health, and functional communication. PLAN OF CARE STG 1. Patient will participate in pharyngeal exercise program independently for appropriate technique to increase R-side vocal fold medialization, strengthen suprahyoid musculature, improve pharyngeal propulsion, and to promote UES relaxation for increased swallow efficiency, tolerance of least restrictive diet, and minimized risk of aspiration. 2. Patient will participate in vocal exercises independently to decrease R-side vocal fold paralysis and decrease vocal dysfunction including reduced hoarseness and aphonia and self-report a score of 5 or lower on the EAT-10 LTG 1. The patient will safely and efficiently tolerate regular diet and thin liquids with independent implementation of safe swallow strategies and minimized s/s of dysphagia. 2. Patient will have vocal function to support functional communication at work, home and in community. Rehabilitation Prognosis: Good. Pt w/ high PLOF, strong motivation, recent improvement Thank you for this referral. Please call [phone] Mariah Espinal M.S., [facility] Physician Signature Date MTDD
--- NOTE | 2018-09-19 17:58 | PT PLAN OF CARE ---
Physician: Luis Angel Smith MD Patient is being seen: 2-3x/week Therapist: Pa Saavedra, PT, DPT Medical Diagnosis: Acute ischemic vertebrobasilar artery brainstem stroke, right Treatment Diagnosis: same, decreased balance, strength, and endurance Date of Onset: 08/03/18 Date of Initial Evaluation: 08/23/18 Date patient was last seen: 09/19/18 Number of treatments: 12 Number of cancellations/No shows: 0 INTERVENTIONS: Manual Therapy/STM/MET Strengthening/condition Range of Motion Spinal Stabilization Work Hardening/Cond Stretching Neuromuscular Re-ed Closed Chain Program Posture/Body mechanics Gait Trg/Balance Trg Home Exercise Program Therapeutic Activities GOALS: 2 weeks: Pt will demonstrate centralized neck pain to improve function and QOL. 4 weeks: Pt will demonstrate abolished neck pain to improve function and QOL. 8 weeks: Pt will be able to ambulate independently to improve function and QOL. 8 weeks: Pt will demonstrate minimal sway with balance in all conditions to improve function and QOL. 8 weeks: Pt will improve L LE strength from baseline to 5/5 to improve function and QOL. PATIENT'S GOAL: walking without the walking and be able to walk around the block, get back to help with the kids, and get back to work. Status of Patient's Goals: Progressing well Patient Compliance: Excellent Prognosis: Excellent Reasons for continuing therapy: This is a progress note for Elmer Varela. He reports that he is doing better. He reports that he feels like his walking is getting better. He also reports that he feels like his balance is getting better and he is fading less to the R. He reports that his R knee continues to give out; however, he is able to catch himself and not fall to the ground. He reports that his neck pain is completely gone. He also reports that his low back pain is getting better and feels no pain on most days of the week. He reports that he has been performing his specific exercises for the neck and the low back region. Overall, he reports that he feels better with increased gait mechanics, balance, and decreased neck and low back pain. He has demonstrated the following improvements since starting PT: he demonstrated increased balance strategies in all conditions; however, he continues to have moderate to severe sway with the vestibular system isolated, which we will continue to address. He demonstrated increased B LE strength as indicated by increased 10RM at each muscle group; furthermore, he demonstrated increased R LE by 20 to 30 pounds and the L LE by 10 pounds; however, this means that his R LE is only 10 pounds different than his L LE, which is a significant improvement. He demonstrated directional preference with RET with extension in his cervical spine and that pain has abolished. Furthermore, he has demonstrated directional preference with extension in his low back region that has abolished his low back pain. Furthermore, he has made significant strides with his ataxic movement and is becoming much more in control of his B LE's. Lastly, he has transitioned from FWW to independent gait mechanics with increased heel strike, increased push off, decreased base of support, no LOB's, and increased B UE movement. Overall, he is progressing well to achieve a full recovery and we will continue to address his impairments and return him to full function. Posture: He demonstrates minimal forward head, minimal rounded shoulders, minimal increased in thoracic kyphosis, and normal lumbar lordosis. ROM: Cervical AROM: flexion, protrusion, retraction, extension: NIL with normal end feels. R rotation, L rotation, R side bending, L side bending: NIL with normal end feels. Strength: L hip flexion, abduction, adduction, L knee flexion and extension, L ankle PF and DF: 5/5 with no pain. R hip flexion, abduction, R knee flexion and extension, R ankle PF and DF: 4+/5 with no pain. Palpation: No longer TTP With sit to/from standing: he demonstrated minimal reduction of weightbearing on the R LE as compared to the L LE weightbearing during the transfer. Mobility: Independent If you have any questions, please contact me at [phone]. Thank you, Pa Saavedra, PT, DPT DANIELLED
--- NOTE | 2018-10-04 11:12 | SLP PLAN OF CARE ---
SPEECH THERAPY ASSESSMENT Physician: Dr. Luis Angel Newell Clinician: Mariah Espinal MS, CCC-PROJECT DEVELOPMENT DIRECTOR Type of Assessment: Voice and Swallow Patient: Elmer Varela : 1980, 38yrs Evaluation Date: 10-03-18 The patient has been attending ST to address voice/swallow deficits following CVA. On approximately , the patient received surgery for R vocal fold temporizing injection medialization with prolaryn gel. Post surgical pain has resolved per pt report. Pt has experienced shortness of breath s/p laryngeal surgery and went to ER the week of 09/26/18 d/t to concerns with this. Dx testing indicated likely infiltrate d/t aspiration during surgery. SPO2 monitoring during ST shows oxygen levels averaging between 92-93% with lowest recorded at 88% which quickly recovered. He reports not sleeping well and fatigue. Pt would like to begin neuromuscular electrical stimulation to stimulate vocal fold movement R-side. This is appropriate and will begin next week to allow more recovery from surgery. Pt reports swallowing deficits have resolved but vocal deficits persist. ST need continues to address paralyzed R-side vocal fold and poor respiratory coordination with speech decreasing functional communication and independence. Speech therapy is medically necessary 2wk12 for patient to return to PLOF UPDATED PLAN OF CARE STG 1. Patient will participate in pharyngeal exercise program independently for appropriate technique to increase R-side vocal fold medialization Updated to reflect resolution of dysphagia symptoms per patient repor. 2. Patient will participate in vocal exercises, in conjunction with nmes at least once a week, independently to decrease R-side vocal fold paralysis and decrease vocal dysfunction including reduced hoarseness and aphonia and self- report a score of 5 or lower on the EAT-10. Progressing. Continue goal LTG 1. The patient will safely and efficiently tolerate regular diet and thin liquids with independent implementation of safe swallow strategies and minimized s/s of dysphagia. Met. DC goal 2. Patient will have vocal function to support functional communication at work, home and in community. Progressing Rehabilitation Prognosis: Good. Pt w/ high PLOF, strong motivation, recent improvement Thank you for this referral. Please call [phone] Mariah Espinal M.S., CCC-PROJECT DEVELOPMENT DIRECTOR [facility] Certified [facility] NMES Dysphagia Therapy Care Certified Physician Signature Date MTDD
--- NOTE | 2018-10-20 17:37 | PT PLAN OF CARE ---
Physician: Luis Angel Smith MD Patient is being seen: 2-3x/week Therapist: Pa Saavedra, PT, DPT Medical Diagnosis: Acute ischemic vertebrobasilar artery brainstem stroke, right Treatment Diagnosis: same, decreased balance, strength, and endurance Date of Onset: 08/03/18 Date of Initial Evaluation: 08/23/18 Date patient was last seen: 10/20/18 Number of treatments: 23 Number of cancellations/No shows: 1 INTERVENTIONS: Manual Therapy/STM/MET Strengthening/condition Range of Motion Spinal Stabilization Work Hardening/Cond Stretching Neuromuscular Re-ed Closed Chain Program Posture/Body mechanics Gait Trg/Balance Trg Home Exercise Program Therapeutic Activities GOALS: 2 weeks: Pt will demonstrate centralized neck pain to improve function and QOL. 4 weeks: Pt will demonstrate abolished neck pain to improve function and QOL. 8 weeks: Pt will be able to ambulate independently to improve function and QOL. 8 weeks: Pt will demonstrate minimal sway with balance in all conditions to improve function and QOL. 8 weeks: Pt will improve L LE strength from baseline to 5/5 to improve function and QOL. PATIENT'S GOAL: walking without the walking and be able to walk around the block, get back to help with the kids, and get back to work. Status of Patient's Goals: Progressing well Patient Compliance: Excellent Prognosis: Excellent Reasons for continuing therapy: This is a progress note for Elmer Varela. Today, he reports that he has some thoracic spine numbness that just started and is also seeing the neurologist and will address that issue with him today. He rates the spine numbness to be 5/10. He continues to maintain BP prior, during, and following the session. Elmer reports that his balance has improved. He is able to ambulate a block around his home. He reports that he would like to walk his kids to/from school, which is approximately 5 blocks. He demonstrated significant strength gains in his B LE's as they are now equal 5/5 with an exception with L knee flexion and extension, which is 4/5. He continues to progress with his balance; however, he continues to struggle with tandem stance and the vestibular system isolated, which we will continue to address. Overall, he is progressing well to achieve a full recovery and we will continue to address his impairments and return him to full function. Posture: He demonstrates minimal forward head, minimal rounded shoulders, minimal increased in thoracic kyphosis, and normal lumbar lordosis. ROM: Cervical AROM: flexion, protrusion, retraction, extension: NIL with normal end feels. R rotation, L rotation, R side bending, L side bending: NIL with normal end feels. Strength: L hip flexion, abduction, adduction, L ankle PF and DF: 5/5 with no pain. R hip flexion, abduction, R knee flexion and extension, R ankle PF and DF: 5/5 with no pain. L knee flexion and extension: 4/5 Palpation: No longer TTP With sit to/from standing: he demonstrated minimal reduction of weightbearing on the R LE as compared to the L LE weightbearing during the transfer. Mobility: Independent Balance: Firm surface, eyes opened, normal base of support: 60 seconds with normal sway. Firm surface, eyes opened, decreased base of support: 60 seconds with normal sway. Firm surface, eyes closed, normal base of support: 60 seconds with minimal sway. Firm surface, eyes closed, decreased base of support: 60 seconds with minimal sway. Compliant surface, eyes opened, normal base of support: 60 seconds with moderate sway. Compliant surface, eyes closed, normal base of support: 60 seconds with minimal sway. Complaint surface, eyes opened, decreased base of support: 60 seconds with moderate sway. Compliant surface, decreased base of support, and eyes closed: 60 seconds with increased sway. Tandem stance, complaint surface, eyes opened with R and L forward: 30 seconds with moderate to severe sway. If you have any questions, please contact me at [phone]. Thank you, Pa Saavedra, PT, DPT JAD
--- NOTE | 2018-11-17 11:23 | SLP PLAN OF CARE ---
SPEECH THERAPY 10th Visit Report Physician: Dr. Luis Angel Newell Clinician: Mariah Espinal MS, CCC-AIR BRAKE ADJUSTER Type of Assessment: POC update. Type of Treatment: Voice Patient: Elmer Varela : 1980, 38yrs Evaluation Date: 11-15-18 The patient has been attending ST to address voice deficits following CVA. On approximately , the patient received surgery for R vocal fold injection for medialization with prolaryn gel. Results were successful and patient's voice has improved significantly. Shortness of breath and gasping for air has also decreased. Pt reports he is still not sleeping well. He is waiting more testing for possible CPAP. Pt is participating in a program of neuromuscular electrical stimulation with active pharyngeal/laryngeal exercise to stimulate vocal fold movement R-side and reduce need for repeat further surgical medialization. Pt is responding well with increased respiratory support an coordination during exercise. Max phonation time has increased to average of 15 seconds up from 6seconds. ST need continues to address paralyzed R-side vocal fold and poor respiratory coordination with speech decreasing functional communication and independence. Speech therapy is medically necessary 2wk12 for patient to return to PLOF UPDATED PLAN OF CARE STG 1. Patient will participate in pharyngeal exercise program independently for appropriate technique to increase R-side vocal fold medialization Progressing. Continue goal 2. Patient will participate in vocal exercises, in conjunction with nmes at least once a week, independently to decrease R-side vocal fold paralysis and decrease vocal dysfunction including reduced hoarseness and aphonia and self- report a score of 5 or lower on the EAT-10. Progressing. Continue goal LTG 1. Patient will have vocal function to support functional communication at work, home and in community. Progressing Rehabilitation Prognosis: Good. Pt w/ high PLOF, strong motivation, recent improvement Thank you for this referral. Please call [phone] Mariah Espinal M.S., CCC-AIR BRAKE ADJUSTER [facility] Certified [facility] NMES Dysphagia Therapy Care Certified Physician Signature Date MTDD
== END 2018-11-21 ==
LOC: PT 09:45
PROVIDERS: ATTEND Internal Medicine
DX: I63.89 Other cerebral infarction (principal)
CPT/HCPCS: 97162; 97165; 97168

== ENCOUNTER → 2018-11-18 | Outpatient (CLI) | payer OTHER ==
--- NOTE | 2018-11-18 15:02 | RADIOLOGY IMAGING REPORT ---
FACILITY: [facility] PATIENT NAME: Elmer Varela : 1980 MR: [id number] V: [id number] EXAM DATE: ORDERING PHYSICIAN: RAMBO SHEFFIELD TECHNOLOGIST: Location: [facility] Patient: Elmer Varela : 1980 Visit/Account:[id number] Date of Sevice: 11/18/2018 EXAMINATION: Left LOWER EXTREMITY VENOUS DOPPLER ULTRASOUND DATE: 11/18/2018 2:51 PM CLINICAL INFORMATION: Evaluate for DVT REASON FOR STUDY: edema redness LLE TECHNIQUE: Grayscale, color Doppler, and spectral Doppler ultrasound was performed of the lower extre mity veins to evaluate for deep venous thrombosis. COMPARISON: None FINDINGS: The left common femoral, femoral, and popliteal veins are compressible with normal flow on color Dopp ler imaging. There is also normal Doppler flow of the profunda femoris and greater saphenous veins at the confluence with the common femoral vein. The left posterior tibial and peroneal veins demonstrate normal flow The contralateral right common femoral vein demonstrates normal flow on color Doppler and respiratory variations on spectral Doppler. IMPRESSION: No evidence of deep venous thrombosis in the left lower extremity veins. Report Dictated By: Saravanan Zeng MD at 11/18/2018 2:51 PM Report E-Signed By: Saravanan Zeng MD at 11/18/2018 2:56 PM WSN:[id number]
== END ==
LOC: US 13:47
PROVIDERS: ATTEND Internal Medicine
DX: R60.0 Localized edema (principal)

== ENCOUNTER → 2018-12-02 | Outpatient (CLI) | payer OTHER ==
[~2018-12-02] MED LIST changes: +MUPI15CR2 TP; -ROS10 PO; +ROSU10TA PO
== END ==
LOC: RESP 20:03
PROVIDERS: ATTEND Internal Medicine
DX: G47.33 Obstructive sleep apnea (adult) (pediatric) (principal); G47.37 Central sleep apnea in conditions classified elsewhere; G47.36 Sleep related hypoventilation in conditions classified elsewhere; G47.61 Periodic limb movement disorder

== ENCOUNTER → 2019-01-30 | Outpatient (CLI) | payer OTHER ==
[~2019-01-30] MED LIST changes: +AMOX-559 PO
--- NOTE | 2019-01-30 10:43 | EKG ---
[place] [facility] [place] NAME: FE AQUINO : [id number] MR: [id number] V: [id number] EXAM DATE: ORDERING PHYSICIAN: RAMBO SHEFFIELD TECHNOLOGIST: SRAVAN Huerta Reason : PRE-OP Blood Pressure : / mmHG Vent. Rate : 081 BPM Atrial Rate : 081 BPM P-R Int : 176 ms QRS Dur : 096 ms QT Int : 398 ms P-R-T Axes : 068 -21 046 degrees QTc Int : 462 ms Sinus rhythm Possible right atrial enlargement No acute appearing findings Borderline ECG Confirmed by HERBERT HOPPER ([id number]) on 01/30/2019 11:30:58 AM Referred By: NETTIE Confirmed By:HERBERT HOPPER
[2019-01-30 10:46] LABS: PLATELET COUNT, AUTOMATED 237 K/uL (150-450)
[2019-01-30 11:07] LABS: INR 1.05; LDL CHOLESTEROL 45 mg/dl
== END ==
LOC: LAB 10:21
PROVIDERS: ATTEND Internal Medicine
DX: I63.219 Cerebral infarction due to unspecified occlusion or stenosis of unspecified vertebral artery (principal); H16.001 Unspecified corneal ulcer, right eye; E78.5 Hyperlipidemia, unspecified; G47.30 Sleep apnea, unspecified; R60.0 Localized edema; B02.9 Zoster without complications; I10 Essential (primary) hypertension; Z01.810 Encounter for preprocedural cardiovascular examination
CPT/HCPCS: 36415; 81001; 82040; 82247; 82310; 82374; 82435; 82465; 82565; 82947; 83718; 84075; 84132; 84155; 84295; 84443; 84450; 84460; 84478; 84520; 85025; 85610; 93005

== ENCOUNTER → 2019-02-09 | Outpatient (CLI) | payer OTHER ==
--- NOTE | 2019-02-09 13:09 | RADIOLOGY IMAGING REPORT ---
FACILITY: [facility] PATIENT NAME: Elmer Varela : 1980 MR: [id number] V: [id number] EXAM DATE: ORDERING PHYSICIAN: RAMBO SHEFFIELD TECHNOLOGIST: [place] [facility] [place]: Elmer Varela : 1980 Visit/Account:[id number] Date of Sevice: 02/09/2019 Exam type: CERVICAL SPINE 2 OR 3 VIEW History: neck pain Comparison: None. Findings: Three views were submitted There is straightening of normal cervical lordosis which can be seen with muscle spasm there is no ev idence of acute fractures or subluxations. Large marginal osteophytes seen on the left at C3-4. No evidence of prevertebral soft tissue swelling IMPRESSION: 1. Large left lateral osteophytes are identified at C3-4 Report Dictated By: Eva Prieto MD at 02/09/2019 1:04 PM Report E-Signed By: Eva Prieto MD at 02/09/2019 1:05 PM REGINEN:MARIN
--- NOTE | 2019-02-09 13:10 | RADIOLOGY IMAGING REPORT ---
FACILITY: [facility] - [place] PATIENT NAME: Elmer Varela : 1980 MR: [id number] V: [id number] EXAM DATE: ORDERING PHYSICIAN: RAMBO SHEFFIELD TECHNOLOGIST: Location: [facility] - [place], [place] Patient: Elmer Varela : 1980 Visit/Account:[id number] Date of Sevice: 02/09/2019 Exam type: SHOULDER MIN 2 VIEWS LEFT History: Left shoulder strain Comparison: October 07, 2017. Findings: Four views were submitted. There is no evidence of acute fracture-dislocation or significant arthrit ic change involving the left shoulder IMPRESSION: 1. No acute osteoarticular abnormality the left shoulder seen Report Dictated By: Eva Prieto MD at 02/09/2019 1:05 PM Report E-Signed By: Eva Prieto MD at 02/09/2019 1:06 PM WSN:[id number]
== END ==
LOC: RAD 10:36
PROVIDERS: ATTEND Internal Medicine
DX: M54.2 Cervicalgia (principal); S46.912A Strain of unspecified muscle, fascia and tendon at shoulder and upper arm level, left arm, initial encounter
CPT/HCPCS: 72040

== ENCOUNTER 2019-02-17 16:00 | Outpatient (RCR) | payer OTHER ==
--- NOTE | 2018-11-23 08:53 | PT PLAN OF CARE ---
Physician: Luis Angel Smith MD Patient is being seen: 2-3x/week Therapist: Pa Saavedra, PT, DPT Medical Diagnosis: Acute ischemic vertebrobasilar artery brainstem stroke, right Treatment Diagnosis: same, decreased balance, strength, and endurance Date of Onset: 08/03/18 Date of Initial Evaluation: 08/23/18 Date patient was last seen: 11/22/18 Number of treatments: 33 Number of cancellations/No shows: 2 INTERVENTIONS: Manual Therapy/STM/MET Strengthening/condition Range of Motion Spinal Stabilization Work Hardening/Cond Stretching Neuromuscular Re-ed Closed Chain Program Posture/Body mechanics Gait Trg/Balance Trg Home Exercise Program Therapeutic Activities GOALS: 2 weeks: Pt will demonstrate centralized neck pain to improve function and QOL. MET 4 weeks: Pt will demonstrate abolished neck pain to improve function and QOL. MET 8 weeks: Pt will be able to ambulate independently to improve function and QOL. MET 8 weeks: Pt will demonstrate minimal sway with balance in all conditions to improve function and QOL. Progressing 8 weeks: Pt will improve L LE strength from baseline to 5/5 to improve function and QOL. Progressing PATIENT'S GOAL: walking without the walking and be able to walk around the block, get back to help with the kids, and get back to work. Progressing well Status of Patient's Goals: Progressing well Patient Compliance: Excellent Prognosis: Excellent Reasons for continuing therapy: This is a progress note for Elmer Varela. He reports that he feels like he is doing better. He denies any neck or back pain. He reports that he still has a feeling of numbness around his entire spine. He reports that he feels like he is getting stronger, walking better, and has better balance. He also reports that he feels like he gets tired pretty easily with walking and would like to address that as well as everything else that we have been doing. He demonstrates significant improvements with his balance especially in the conditions in which his vestibular system is isolated. Furthermore, he demonstrated significant improvements with gait mechanics as he was able to decrease base of support, increased pelvic mobility, normal step lengths, and increased velocity. He demonstrates equal weightbearing with sitting to/from standing, which is a significant improvement. He demonstrates full cervical and lumbar AROM with normalized ends feels, which is another significant improvement. We will continue to address higher level balance strategies (dynamic/static), gait mechanics, endurance especially with ambulation, and further progress his strength. Posture: He demonstrates minimal forward head, minimal rounded shoulders, minimal increased in thoracic kyphosis, and normal lumbar lordosis. ROM: Cervical AROM: flexion, protrusion, retraction, extension: NIL with normal end feels. R rotation, L rotation, R side bending, L side bending: NIL with normal end feels. Strength: L hip flexion, abduction, adduction, L ankle PF and DF: 5/5 with no pain. R hip flexion, abduction, R knee flexion and extension, R ankle PF and DF: 5/5 with no pain. L knee flexion and extension: 4+/5 Palpation: No longer TTP With sit to/from standing: he demonstrated no deviation of weightbearing Mobility: Independent Balance: Firm surface, eyes opened, normal base of support: 60 seconds with normal sway. Firm surface, eyes opened, decreased base of support: 60 seconds with normal sway. Firm surface, eyes closed, normal base of support: 60 seconds with minimal sway. Firm surface, eyes closed, decreased base of support: 60 seconds with minimal sway. Compliant surface, eyes opened, normal base of support: 60 seconds with moderate sway. Compliant surface, eyes closed, normal base of support: 60 seconds with minimal sway. Complaint surface, eyes opened, decreased base of support: 60 seconds with moderate sway. Compliant surface, decreased base of support, and eyes closed: 60 seconds with increased sway. Tandem stance, complaint surface, eyes opened with R and L forward: 30 to 45 seconds with moderate sway. If you have any questions, please contact me at [phone]. Thank you, Pa Saavedra, PT, DPT JAD
--- NOTE | 2018-11-25 12:41 | SLP Assessment ---
"REQUEST FOR MEDICAL INSURANCE APPROVAL OF SPEECH THERAPY SERVICES Patient Physician: Dr. Luis Angel Newell Clinician: Mariah Espinal, MS, CCC-SETTER AUTOMATIC SPINNING LATHE Patient: Elmer Varela Patient : 1980, 38yrs Date: 11-24-18 BACKGROUND Mr. Varela is a 38yo R-hand dominant male referred to s/p CVA of the R-side brainstem. This CVA occurred 08/03/2018. Mr. Varela has been receiving speech therapy services 2xwk for a total of 24visits for voice deficits and dysphagia which decrease his safety, functional independence, communication, and quality of life. DYSPHAGIA An MBS on 08/04/18 provided the following results: Results of MBS 08/04/18 Patients oral phase is within normal limits (WNL) with adequate strength, range of motion, speed and coordination of all oral musculature for timely and complete mastication, appropriate bolus formation, good bolus control, and efficient anterior to posterior transit in oral cavity. Initiation of the pharyngeal swallow was variable, ranging from the base of the tongue to the level of the pyriforms with the thin liquid component during mastication of solids with trials of mixed textures. This delay is considered a normal deviation, and sensation appeared otherwise intact. During pharyngeal swallow onset, the pts superior hyolaryngeal movement was diminished with subsequent reduction in epiglottic inversion and incomplete closure of the laryngeal vestibule. This resulted in penetration of large volumes of thin liquids during the swallow to the level of the vocal folds without complete ejection (PAS 5). Penetration above the vocal folds was also witnessed with residual thin liquids (PAS 3), and the trace amount of material remained in the laryngeal vestibule. The pts sluggish and reduced superior hyolaryngeal movement resulted in decreased epiglottic inversion with moderate residue in the vallecular space. This also likely contributed to reduced opening of the upper esophageal sphincter with moderate to severe residue in the pyriform sinuses. Diminished pharyngeal stripping waveform further resulted in reduced pharyngeal clearance. The amount of residue increased in quantity in correlation with the size of the bolus, and with hard, crunchy textures. With hard, crunchy solids, 90% of material remained in the pyriform sinus despite execution of >4 dry swallows to clear. The pts sensation was excellent with repeated attempts to clear residue from pharynx across trials. Use of double swallow was effective in clearing approximately 50% of residue with soft and pureed solids. Use of liquid wash further helped to clear material. Dysphagia has decreased with speech therapy as demonstrated on the EAT-10 and per patient report. During the initial ST assessment at [facility], Mr. Varela completed the EAT-10 receiving a total score of 27/40. Mr Varela completed EAT- 10 again on 11-23-09 acquiring a total of score of 15/40 demonstrating significant improvement. Results are detailed in the table below: EATING ASSESSMENT TOOL (EAT 10) : a patient self-scored rating scale of swallowing problems. Possible responses are based on a 1-4 numeric scale with 0= no problem, 4=severe problem. 1. My swallowing problem has caused me to lose weight. Decreased from 4 to 0 2. My swallowing problem interferes with my ability to go out for meals. Remains at 3 3. Swallowing liquids takes extra effort. Decreased from 3 to 0 4. Swallowing solids takes extra effort. Decreased from 2 to 1 5. Swallowing pills takes extra effort. Remains at 3 6.Swallowing is painful Remains at 0 7. The pleasure of eating is affected by my swallowing. Decreased from 4 to 2 8. When I swallow, food sticks in my throat. Decreased from 3 to 2 9. I cough when I eat. Decreased from 3 to 2 10. Swallowing is stressful. Decreased from 3 to 0 *A score of 3 or higher may indicate a swallowing problem. Respiratory/Swallow coordination has significantly improved with pt gasping during meals is decreased. He continues to perform EMST using The Breather device and has increased expiratory and inspiratory resistance on the device to level 4 from initial setting of level 3 for inhalation phase, level 2 for exhalation Pt report respiratory discoordinate is largely limited to evening/night when he is fatigued. Dysphagia is addressed through NMES with traditional pharyngeal/laryngeal exercise program. VOICE D/T R-side vocal fold paralysis following DVA, the patient received vocal fold medialization surgery in early September,. Vocal quality significantly improved with this, however it is not a permanent solution and some vocal hoarseness and inconsistent pitch has begun to return. The patient has been receiving voice tx 2xwk with ST and performing voice home program as instructed. Phonatory/respiratory coordination has improved with max length of sustained vocal production as follows: (both dates post vocal fold medialization surgery ) 10/05/18 mid pitch: 9 sec, high: 3 sec, low: 6 sec). 11/10/18 mid pitch: 11sec, high: 11sec, Low: 12sec), Increased subglottic pressure is noted during vocal exercises demonstrating improved respiratory/laryngeal coordination and strength improving overall vocal quality as well as decreasing vocal fatigue over time. Vocal deficits are addressed through ST using [facility] NMES protocol in conjunction with traditional vocal functional education and exercise program. ORAL MOTOR AND SENSORY Disordered respiratory/swallow/speech coordination. This is addressed via EMST as well as laryngeal diaphragmatic breath support, easy onset phonation, and upper body relaxation training and has demonstrated improvement as described above. R-side facial numbness is reduced in severity per patient report. Mild right side facial droop is improved though still present and pt continues to receive NMES along with traditional oral motor/facial exercise techniques. SUMMARY and SPEECH THERAPY NEED Mr. Varela has demonstrated a significant improvement in swallow function and vocal quality as described in detail above. However, deficits persist and Mr. Varela would benefit from continued ST to improve functional voice and swallow. This treatment is medically necessary for Mr. Varela to return to PLOF and regain independent swallow safety and communicative function. RECOMMENDATIONS Speech therapy is medically necessary 2wk12 PLAN OF CARE STG 1. Patient will participate in pharyngeal exercise program independently for appropriate technique to increase R-side vocal fold medialization, strengthen suprahyoid musculature, improve pharyngeal propulsion, and to promote UES relaxation for increased swallow efficiency, tolerance of least restrictive diet, and minimized risk of aspiration. 2. Patient will participate in vocal exercises independently to decrease R-side vocal fold paralysis and decrease vocal dysfunction including reduced hoarseness and aphonia and self-report a score of 5 or lower on the EAT-10 LTG 1. The patient will safely and efficiently tolerate regular diet and thin liquids 2. Patient will have vocal function to support functional communication at work, home and in community. REHAB PROGNOSIS Excellent. Demonstrated recent improvement. Pt w/ high PLOF and strong motivation Thank you for your consideration, Mariah Espinal M.S., [facility]-SETTER [employer]OM[employer] SPINNING LATHE Speech-Language Pathology Rehabilitation Services Department [email or web address] phone | [phone] [place] [id number] [email or web address]
--- NOTE | 2018-12-22 13:44 | PT PLAN OF CARE ---
Physician: Luis Angel Smith MD Patient is being seen: 2x/week Therapist: Pa Saavedra, PT, DPT Medical Diagnosis: Acute ischemic vertebrobasilar artery brainstem stroke, right Treatment Diagnosis: same, decreased balance, strength, and endurance Date of Onset: 08/03/18 Date of Initial Evaluation: 08/23/18 Date patient was last seen: 12/22/18 Number of treatments: 43 Number of cancellations/No shows: 2 INTERVENTIONS: Manual Therapy/STM/MET Strengthening/condition Range of Motion Spinal Stabilization Work Hardening/Cond Stretching Neuromuscular Re-ed Closed Chain Program Posture/Body mechanics Gait Trg/Balance Trg Home Exercise Program Therapeutic Activities GOALS: 2 weeks: Pt will demonstrate centralized neck pain to improve function and QOL. MET 4 weeks: Pt will demonstrate abolished neck pain to improve function and QOL. MET 8 weeks: Pt will be able to ambulate independently to improve function and QOL. MET 8 weeks: Pt will demonstrate minimal sway with balance in all conditions to improve function and QOL. Progressing 8 weeks: Pt will improve L LE strength from baseline to 5/5 to improve function and QOL. Progressing PATIENT'S GOAL: walking without the walking and be able to walk around the block, get back to help with the kids, and get back to work. Progressing well Status of Patient's Goals: Progressing well Patient Compliance: Excellent Prognosis: Excellent Reasons for continuing therapy: This is a progress note for Elmer Varela. He reports that he feels like he is doing better. He reports that he has been sleeping so much better since receiving his BPAP or CPAP. He reports that he has been having increased low back pain, but his specific exercise continues to relieve the pain as long as he remembers to perform it. He reports that he feels like something is going on with his vocal cords and feels like he needs to have that surgery again since the previous time it made it feel so much better for such a long time. He reports that he feels like he is getting stronger, walking better, and has better balance. He reports that he feels like he can walk a lot further with less breaks. He reports that they are going to try the lens for his eye starting next week to see if he has any shot of it being corrected without surgery. He demonstrates significant improvements with his balance especially in the conditions in which his vestibular system is isolated. Furthermore, he demonstrated significant improvements with gait mechanics as he was able to decrease base of support, increased pelvic mobility, normal step lengths, and increased velocity; however, it is difficult for him to carry over, which we are currently working on. He demonstrates equal weightbearing with sitting to/from standing, which is a significant improvement. We will continue to address higher level balance strategies (dynamic/static), gait mechanics, endurance especially with ambulation, and further progress his strength. Posture: He demonstrates minimal forward head, minimal rounded shoulders, minimal increased in thoracic kyphosis, and normal lumbar lordosis. ROM: Cervical AROM: flexion, protrusion, retraction, extension: NIL with normal end feels. R rotation, L rotation, R side bending, L side bending: NIL with normal end feels. Strength: L hip flexion, adduction, L ankle PF and DF: 5/5 with no pain. R hip flexion, abduction, R knee flexion and extension, R ankle PF and DF: 5/5 with no pain. L hip abduction and extension and knee flexion and extension: 4+/5 Palpation: No longer TTP With sit to/from standing: he demonstrated no deviation of weightbearing Mobility: Independent Balance: Firm surface, eyes opened, normal base of support: 60 seconds with normal sway. Firm surface, eyes opened, decreased base of support: 60 seconds with normal sway. Firm surface, eyes closed, normal base of support: 60 seconds with minimal sway. Firm surface, eyes closed, decreased base of support: 60 seconds with minimal sway. Compliant surface, eyes opened, normal base of support: 60 seconds with moderate sway. Compliant surface, eyes closed, normal base of support: 60 seconds with minimal sway. Complaint surface, eyes opened, decreased base of support: 60 seconds with moderate sway. Compliant surface, decreased base of support, and eyes closed: 60 seconds with increased sway. Tandem stance, complaint surface, eyes opened with R and L forward: 30 to 45 seconds with moderate sway. If you have any questions, please contact me at [phone]. Thank you, Pa Saavedra, PT, DPT JAD
--- NOTE | 2019-01-16 12:27 | SLP PLAN OF CARE ---
SPEECH THERAPY PROGRESS REPORT Patient Physician: Dr. Luis Angel Newell Clinician: Mariah Espinal MS, CCC-TALENT RECRUITER Patient: Elmer Varela Patient : 1980, 38yrs Date: 01-16-19 BACKGROUND Mr. Varela is a 38yo R-hand dominant male referred to s/p CVA of the R-side brainstem occurring 08/03/2018. Mr. Varela has been receiving speech therapy services 2xwk voice deficits and dysphagia which decrease his safety, functional independence, communication, and quality of life. DYSPHAGIA Dysphagia has decreased with speech therapy as demonstrated on the EAT-10 and per patient report. During the initial ST assessment at [facility], Mr. Varela completed the EAT-10 receiving a total score of 27/40. Mr Varela completed EAT- 10 again on 11-23-09 acquiring a total of score of 15/40 demonstrating significant improvement. However, over the last 3 weeks Mr. Varela has reported increasingly sticking of foods in his throat as well as globus sensation. He uses R-side head turn, multiple swallows and liquid washes to manage dysphagia at this time and reports these techniques are largely successful though time consuming and inconvenient. He also reports he sometimes eats meals alone in his room to avoid distraction and allow him to focus on swallowing safety/function. VOICE Vocal hoarseness, aphonic breaks, and reduced vocal pitch control is increased over the last several weeks and may be due to reduced function of the vocal fold medialization implant. [employer]AL MOTOR AND SENSORY Disordered respiratory/swallow/speech coordination. This is improved however 'gasping' is increasing over the last 3weeks and may be related to decreasing function of the temporary vocal fold implant. SUMMARY and SPEECH THERAPY NEED Mr. Varela has demonstrated a significant improvement in swallow function and vocal quality as described in detail above. However, over the last approximately 3 weeks he reports worsening dysphagia symptomsa nd presents with decreased vocal function with increased aphonic events, decreased pitch control, and increased hoarseness. Regression may be due to decreasing function of temporary vocal fold implant. RECOMMENDATIONS Speech therapy is medically necessary 2wk12 . This treatment is medically necessary for Mr. Varela to return to PLOF and regain independent swallow safety and communicative function. PLAN OF CARE STG 1. Patient will participate in pharyngeal exercise program independently for appropriate technique to increase R-side vocal fold medialization, strengthen suprahyoid musculature, improve pharyngeal propulsion, and to promote UES relaxation for increased swallow efficiency, tolerance of least restrictive diet, and minimized risk of aspiration. -pt is experiencing some regression likely in response to decreasing function of the surgical implant over time. This is expected and the the patient will discuss with his physician whether or not the surgery will be repeated and if so if a temporary or permanent implant is recommended. 2. Patient will participate in vocal exercises independently to decrease R-side vocal fold paralysis and decrease vocal dysfunction including reduced hoarseness and aphonia and self-report a score of 5 or lower on the EAT-10 -results similar to goal #1 above. LTG 1. The patient will safely and efficiently tolerate regular diet and thin liquids 2. Patient will have vocal function to support functional communication at work, home and in community. REHAB PROGNOSIS Very good. Thank you for this referral. Please call [facility] Rehabilitation Services at [phone] Mariah Espinal M.S., CCC-TALENT RECRUITER Physician Signature Date MTDD
--- NOTE | 2019-01-19 17:48 | PT PLAN OF CARE ---
Physician: Luis Angel Smith MD Patient is being seen: 2-3x/week Therapist: Pa Saavedra, PT, DPT Medical Diagnosis: Acute ischemic vertebrobasilar artery brainstrem stroke, right Treatment Diagnosis: same, decreased balance, strength, and endurance Date of Onset: 08/03/18 Date of Initial Evaluation: 08/23/18 Date patient was last seen: 01/19/19 Number of treatments: 54 Number of cancellations/No shows: 2 INTERVENTIONS: Manual Therapy/STM/MET Strengthening/condition Range of Motion Spinal Stabilization Work Hardening/Cond Stretching Neuromuscular Re-ed Closed Chain Program Posture/Body mechanics Gait Trg/Balance Trg Home Exercise Program Therapeutic Activities GOALS: 2 weeks: Pt will demonstrate centralized neck pain to improve function and QOL. MET 4 weeks: Pt will demonstrate abolished neck pain to improve function and QOL. MET 8 weeks: Pt will be able to ambulate independently to improve function and QOL. MET 8 weeks: Pt will demonstrate minimal sway with balance in all conditions to improve function and QOL. Progressing 8 weeks: Pt will improve L LE strength from baseline to 01/22 to improve function and QOL. Progressing PATIENT'S GOAL: walking without the walking and be able to walk around the block, get back to help with the kids, and get back to work. Progressing well Status of Patient's Goals: Progressing well Patient Compliance: Excellent Prognosis: Excellent Reasons for continuing therapy: This is a progress note for Elmer Varela. He reports that he is doing well. He reports that he continues to have pain with his L knee that seems to be getting better. He reports that his throat continues to be bad, but he will see his ENT on Wednesday. He reports that his neck and low back have been tight but reports that his specific exercises are reducing the tightness. He reports that he continues to struggle with endurance and narrow gait mechanics. His L LE demonstrated reduced strength from the last POC to this POC for some unknown reason, which is probably why he developed L knee pain. He is independent on his L LE strengthening program so that he can do it at home so that we can build his L LE strength to where it used to be. However, he has demonstrated a significant improvement in his endurance as he is able to do increased resistance but greater time and distances as compared to the previous POC. He also demonstrated improved balance strategies in all conditions as compared to the previous POC. I would like to see him decreased his base of support during gait, improved L LE strength, increased endurance, increased balance strategies in all conditions, decreased L knee pain, improve L patellar tracking, and returning closer to prior level of function. Posture: He demonstrates minimal forward head, minimal rounded shoulders, minimal increased in thoracic kyphosis, and normal lumbar lordosis. ROM: Cervical AROM: flexion, protrusion, retraction, extension: NIL with normal end feels. R rotation, L rotation, R side bending, L side bending: NIL with normal end feels. Strength: L hip flexion, adduction, L ankle PF and DF: 5/5 with no pain. R hip flexion, abduction, R knee flexion and extension, R ankle PF and DF: 5/5 with no pain. L hip abduction and extension and knee flexion and extension: 4+/5 Palpation: No longer TTP With sit to/from standing: he demonstrated no deviation of weightbearing Mobility: Independent Balance: Firm surface, eyes opened, normal base of support: 60 seconds with normal sway. Firm surface, eyes opened, decreased base of support: 60 seconds with normal sway. Firm surface, eyes closed, normal base of support: 60 seconds with minimal sway. Firm surface, eyes closed, decreased base of support: 60 seconds with minimal sway. Compliant surface, eyes opened, normal base of support: 60 seconds with moderate sway. Compliant surface, eyes closed, normal base of support: 60 seconds with minimal sway. Complaint surface, eyes opened, decreased base of support: 60 seconds with moderate sway. Compliant surface, decreased base of support, and eyes closed: 60 seconds with increased sway. Tandem stance, complaint surface, eyes opened with R and L forward: 30 to 45 seconds with moderate sway. If you have any questions, please contact me at [phone]. Thank you, Pa Saavedra, PT, DPT MTDD
[~2019-02-17 16:00] MED LIST changes: -GADOBENATE 529MG/1ML 15ML VIAL IVP ONE; -LOR5/325 PO; -NS(*) 0.9% 50 ML BAG 50 ML ONE
[2019-02-21] MEDS ORDERED: AMOX-559 PO (07:54)
[2019-02-21] MEDS ORDERED: LOR5/325 PO (07:54)
== END 2019-02-20 ==
LOC: PT 16:00
PROVIDERS: ATTEND Internal Medicine
DX: I63.89 Other cerebral infarction (principal); G51.0 Bell's palsy; R49.0 Dysphonia

== ENCOUNTER → 2019-02-17 | Outpatient (CLI) | payer OTHER ==
[~2019-02-17] MED LIST changes: +GADOBENATE 529MG/1ML 15ML VIAL IVP ONE; +LOR5/325 PO; +NS(*) 0.9% 50 ML BAG 50 ML ONE
--- NOTE | 2019-02-17 13:02 | RADIOLOGY IMAGING REPORT ---
FACILITY: [facility] PATIENT NAME: Elmer Varela : 1980 MR: [id number] V: [id number] EXAM DATE: ORDERING PHYSICIAN: RAMBO SHEFFIELD TECHNOLOGIST: Location: [facility] - [place] Patient: Elmer Varela : 1980 Visit/Account:[id number] Date of Sevice: 02/17/2019 EXAMINATION: MRA of the [place] HISTORY: Stroke. COMPARISON: Brain MRI dated 08/03/2018. CTA head and neck dated 08/03/2018. TECHNIQUE: [id number] angiography was performed in the axial plane on the [place] without intrav enous gadolinium. The exam was tailored for assessment of the [place] only. Only limited sequences were obtai walker of the rest of the brain. FINDINGS: Petrous carotids: Negative. Carotid siphons / bifurcations: Negative. Anterior / Posterior communicating arteries: Negative. Anterior cerebral arteries: Negative. Middle cerebral arteries: Negative. Intra-cranial vertebral arteries: Negative. Basilar artery: Negative. PICA / AICA / SCA / COMPENSATION EXPERT: Negative. Non-angiographic Findings: Encephalomalacia in the right lateral medulla. IMPRESSION: Normal MRA of the [place]. Report Dictated By: Geo Manning MD at 02/17/2019 12:54 PM Report E-Signed By: Geo Manning MD at 02/17/2019 12:58 PM WSN:[id number]
--- NOTE | 2019-02-18 13:15 | RADIOLOGY IMAGING REPORT ---
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 15 mL MultiHance injected. Stenosis of the internal carotid arteries calculated using NASCET criteria. FINDINGS: Angiographic Findings: Aortic arch / great vessels: Conventional anatomy, normal. Right carotid vasculature: Medial positioning of the mid internal carotid artery, otherwise unremark able. Left carotid vasculature: Normal. Vertebral arteries: Congenitally diminutive right vertebral artery. The distal right vertebral artery is not well visualized secondary to venous enhancement surrounding this portion of the vertebral art suresh in combination with the congenitally diminutive nature of the right vertebral artery. Suboptimal enhancement of the proximal right vertebral artery as well. Otherwise normal. Visible intracranial vasculature: Normal. Non-angiographic Findings: None significant. IMPRESSION: The proximal and distal aspect of the right cervical vertebral artery are not well characterized on t his exam. Recommend CT angiogram for further evaluation of the right vertebral artery to exclude subtle underly ing pathology given history of prior right medullary stroke. Otherwise normal neck arterial vasculature. Report Dictated By: Rock Mcleod MD at 02/18/2019 12:59 PM Report E-Signed By: Rock Mcleod MD at 02/18/2019 1:10 PM WSN:[email or web address]
== END ==
LOC: MRI 01:55
PROVIDERS: ATTEND Internal Medicine
DX: I63.211 Cerebral infarction due to unspecified occlusion or stenosis of right vertebral artery (principal)
CPT/HCPCS: 70544; 70549; A9577; J7050

== ENCOUNTER 2019-02-20 01:23 | Observation (INO) | payer OTHER ==
[2019-02-20] VITALS (12 sets, daily range): BP systolic 139–156; BP diastolic 94–106
[~2019-02-20] VITALS: Ht 195.6 cm; Wt 128.4 kg
[2019-02-20] MEDS ORDERED: fentaNYL CITR 100 MCG/2 ML AMP ONE ×2 (07:02→15:17)
[2019-02-20] MEDS ORDERED: DEXAMETHASONE SOD PHOS 10MG/ML ONE (07:03)
[2019-02-20] MEDS ORDERED: LIDOCAINE 2% IV 100 MG/5ML SYR ONE (07:04)
[2019-02-20] MEDS ORDERED: LIDOCAINE/SOD BICARB 8.4% SYR ID ONE (11:15)
[2019-02-20] MEDS ORDERED: MIDAZOLAM 2 MG/2 ML VIAL IVP PRN (11:15)
[2019-02-20] MEDS ORDERED: NORMOSOL R SOLN(*) 1000 ML BAG 1,000 ML IV PRN (11:15)
[2019-02-20] MEDS ORDERED: FAMOTIDINE 20 MG TAB PO ONE (12:00)
[2019-02-20] MEDS ORDERED: ceFAZolin(*) 2GM/D5W 50ML 50 ML IVPB ONE (12:00)
[2019-02-20] MEDS ORDERED: PROPOFOL EMUL(*) 10MG/ML 20 ML 20 ML ONE (12:45)
[2019-02-20] MEDS ORDERED: LIDO/EPI 1% MDV 1:100,000 20ML INFIL ONE ×2 (13:29→13:58)
[2019-02-20] MEDS ORDERED: MIDAZOLAM 2 MG/2 ML VIAL ONE (13:34)
[2019-02-20] MEDS ORDERED: OXYMETAZOLINE SPRAY 15 ML BTL ONE (14:34)
[2019-02-20] MEDS ORDERED: LR(*) 1000 ML BAG 1,000 ML IV PRN (15:25)
[2019-02-20] MEDS ORDERED: ONDANSETRON 4 MG ODT TABDP SL PRN (15:25)
--- NOTE | 2019-02-20 15:33 | Post Operative Note ---
Operative Note - ENT Operative Day Date: Feb 20, 2019 Physicians Surgeon: Monroe Assistant Hvac Mechanic: Jimmy Anesthesia: MAC Diagnosis Pre-Op Diagnosis: right vocal fold paralysis Post-Op Diagnosis: same Procedure Findings: see dictated note Procedure(s): right medialization thyroplasty with Garcia implant Specimen Removed:(Maybe N/A): none Complications: none Fluids Fluids: see anesthesia note Estimated Blood Loss: 25 ml LIZZIE RIDDLE JR, MD Feb 20, 2019 15:33
[2019-02-20] MEDS: GABAPENTIN 300 MG CAP PO SCH ×2 (17:14→21:17)
[2019-02-20] MEDS: DEXAMETHASONE SOD PHOS 10MG/ML IVP SCH (17:14)
[2019-02-20] MEDS: ACYCLOVIR 200 MG CAP PO SCH ×2 (17:16→21:17)
[2019-02-20] MEDS: APAP/HYDROCODONE 325/5 TAB PO PRN ×2 (18:07→22:24)
[2019-02-20] MEDS: ceFAZolin(*) 2GM/D5W 50ML 50 ML IVPB SCH (19:53)
[2019-02-21 00:01] VITALS: BP 137/90
--- NOTE | 2019-02-21 00:05 | OPERATIVE REPORT 1 ---
EVENT DATE: February 20, 2019 SURGEON: Jayant Childress Jr., MD ANESTHESIOLOGIST: Eduardo Calixto MD ANESTHESIA: Monitored anesthesia care. STRATEGIC CLIENT EXECUTIVE: Dolores Marquez, REGASIFICATION PLANT OPERATOR, CSFA PREOPERATIVE DIAGNOSIS Right vocal fold paralysis. POSTOPERATIVE DIAGNOSIS Right vocal fold paralysis. PROCEDURE PERFORMED Right medialization thyroplasty with Garcia implant. INDICATIONS FOR PROCEDURE Please refer to the preoperative note. DESCRIPTION OF PROCEDURE The patient was positively identified in the preoperative area. Risks were again explained, including but not limited to bleeding, infection, poor voice result, airway compromise, and those associated with anesthesia. He acknowledged understanding of those risks. He was then brought back to the operative suite, laid supine on the operative table, and sedation was administered. I first marked an incision measuring approximately 7 cm in a favorable neck crease 5 mm superior to the cricothyroid membrane extending 2 cm across the midline on the left. Approximately 10 mL of 1% lidocaine with epinephrine was infiltrated in the area of the incision and then deep around the thyroid cartilage. The aforementioned incision was then made with a #15 blade. The underlying subcutaneous tissue was then dissected with Bovie electrocautery. The platysma muscle was identified and divided with Bovie electrocautery. Subplatysmal flaps were elevated superiorly and inferiorly. The strap musculature was then divided along the median raphe. I then retracted the strap muscles laterally. The thyrohyoid muscle was divided from the thyroid cartilage. Calipers and measuring device were used to identify the placement of the window for the implant. This window was then made with a drill and bur. Sizers were then utilized to determine the correct implant size. This was determined to be a Garcia thyroplasty implant size "male 11." When the sizer was in place, a fiberoptic laryngoscopy was performed. The vocal fold was in median position with excellent approximation with the contralateral fold. The permanent implant was then placed into the window. The strap musculature and platysma were then closed with interrupted chromic suture. A rubber band drain was placed. The skin was closed in multilayer fashion. A dressing was placed. The patient was then transported to Recovery in stable condition. Of note, a first aid instructor was necessary for this procedure. ESTIMATED BLOOD LOSS 25 mL. COMPLICATIONS There were no complications. [facility]
[2019-02-21] MEDS: DEXAMETHASONE SOD PHOS 10MG/ML IVP SCH ×2 (00:54→08:21)
[2019-02-21 03:22] VITALS: BP 145/95
[2019-02-21] MEDS: APAP/HYDROCODONE 325/5 TAB PO PRN ×2 (03:54→08:51)
[2019-02-21] MEDS: ceFAZolin(*) 2GM/D5W 50ML 50 ML IVPB SCH (03:54)
[2019-02-21] MEDS: ACYCLOVIR 200 MG CAP PO SCH (06:04)
[2019-02-21 07:08] VITALS: BP 132/86
[2019-02-21] MEDS ORDERED: LOR5/325 PO (07:54)
[2019-02-21] MEDS ORDERED: AMOX-559 PO (07:54)
--- NOTE | 2019-02-21 07:59 | Short(Outpt) Discharge Summary ---
Discharge Summary Reason for Hosp/Final Diag: (1) Vocal cord paralysis Status: Chronic Hospital Course & Plan: Patient underwent right medialization thyroplasty on 02/20. Alfred reg diet. Pain well controlled. No airway concern. Departure Discharge to: Home Discharge Instructions Home Meds Active Scripts Hydrocodone Bit/Acetaminophen (HYDROCODON-ACETAMINOPHEN 5-325) 1 Each Tablet, 1 EACH PO Q6H PRN for MILD TO MODERATE PAIN for 7 Days, #10 TAB Prov:LIZZIE RIDDLE JR, MD 02/21/19 Gabapentin (GABAPENTIN) 600 Mg Tablet, 600 MG PO 3-4XD, #120 TAB 5 Refills Prov:RAMBO SHEFFIELD MD 01/30/19 Duloxetine Hcl (CYMBALTA) 60 Mg Capsule.dr, 60 MG PO QDAY, #30 CAP 3 Refills Prov:RAMBO SHEFFIELD MD 01/13/19 Lisinopril (LISINOPRIL) 20 Mg Tablet, 20 MG PO QDAY, #30 TAB 3 Refills Prov:RAMBO SHEFFIELD MD 10/11/18 Pantoprazole Sodium (PANTOPRAZOLE SODIUM) 40 Mg Tablet.dr, 1 TAB PO QDAY, #90 TAB.SR 1 Refill Prov:RAMBO SHEFFIELD MD 08/31/18 Rosuvastatin Calcium (CRESTOR) 40 Mg Tablet, 40 MG PO QDAY, #90 TAB 1 Refill Prov:RAMBO SHEFFIELD MD 08/31/18 Apixaban (ELIQUIS) 5 Mg Tablet, 5 MG PO BID, #180 TAB 1 Refill Prov:RAMBO SHEFFIELD MD 08/31/18 Aspirin (Children's Aspirin) 81 Mg Tab.chew, 81 MG PO QDAY for 30 Days, TAB.CHEW Prov:KHADRA BHAGAT DO 08/05/18 Reported Medications Doxycycline Hyclate (DOXYCYCLINE HYCLATE) 50 Mg Capsule, 50 MG PO BID, CAPSULE 02/10/19 Acyclovir (ACYCLOVIR) 400 Mg Tablet, 400 MG PO 5XD, TAB 08/31/18 Ascorbic Acid (VITAMIN C) 500 Mg Tablet, 1 TAB PO QDAY, TAB 08/30/18 Multivitamin With Minerals (MULTIPLE VITAMIN) 1 Each Tablet, 1 TAB PO QDAY, TAB 08/30/18 Cholecalciferol (Vitamin D3) (VITAMIN D) 1,000 Unit Capsule, 1000 UNIT PO QDAY, TAB.SL 08/04/18 Diet: Regular Activity: No Heavy Lifting, No Exertion Special Instructions: No lifting over 15 lbs. Keep incision clean. Apply antibiotic ointment (neosporin) to incision BID. Restart Eliquis and aspirin on , 02/23. Follow up visit with LUIZ Weber on Wednesday 02/28 at 730 AM for suture removal. LIZZIE RIDDLE JR, MD Feb 21, 2019 07:59
[2019-02-21] MEDS: GABAPENTIN 300 MG CAP PO SCH (08:20)
[2019-02-21] MEDS ORDERED: PANTOPRAZOLE SOD 40 MG TABEC PO SCH (09:00)
[2019-02-21] MEDS ORDERED: LISINOPRIL 20 MG TAB PO SCH (09:00)
[2019-02-21] MEDS ORDERED: DULoxetine HCL 30 MG CAPCR PO SCH (09:00)
[2019-02-28] MEDS ORDERED: PRED20TA6 PO (09:05)
[2019-02-28] MEDS ORDERED: CEFP250T27 PO (09:05)
[2019-03-07] MEDS ORDERED: DULO60CA56 PO (10:15)
== END 2019-02-21 08:05 | disposition home or self-care (01) ==
LOC: OR 01:23 → MED 16:25
PROVIDERS: ADMIT Otolaryngology; ATTEND Otolaryngology
DX: J38.01 Paralysis of vocal cords and larynx, unilateral (principal); E78.00 Pure hypercholesterolemia, unspecified; I10 Essential (primary) hypertension; F32.9 Major depressive disorder, single episode, unspecified; Z79.82 Long term (current) use of aspirin; Z79.899 Other long term (current) drug therapy
CPT/HCPCS: 31591; G0378; J1100; J2001; J2250; J2704; J3010; J7120; J0690

== ENCOUNTER → 2019-03-06 | Outpatient (CLI) | payer OTHER ==
[~2019-03-06] MED LIST changes: +CEFP250T27 PO; +LOR5/325 PO
== END ==
LOC: CT 00:14
PROVIDERS: ATTEND Internal Medicine
DX: Z02.9 Encounter for administrative examinations, unspecified (principal)

== ENCOUNTER → 2019-03-27 | Outpatient (CLI) | payer OTHER ==
--- NOTE | 2019-03-27 12:35 | RADIOLOGY IMAGING REPORT ---
FACILITY: [facility] - [place] PATIENT NAME: Elmer Varela : 1980 MR: [id number] V: [id number] EXAM DATE: ORDERING PHYSICIAN: LIZZIE RIDDLE TECHNOLOGIST: Location: Patient: Elmer Varela : 1980 Visit/Account:[id number] Date of Sevice: 03/27/2019 EXAMINATION: CT of the Paranasal Sinuses HISTORY: Chronic sinus symptoms, right orbit subcutaneous emphysema from CPAP TECHNIQUE: CT was performed through the paranasal sinuses without intravenous contrast administratio n. Coronal and sagittal reformatted images were generated. One of the following dose optimization techniques was utilized in the performance of this exam: autom ated exposure control; adjustment of the mA and/or kV according to patient size; or use of iterative reconstruction technique. Specific details can be referenced in the facility's radiology CT exam ope rational policy. COMPARISON: Neck CT angiogram 08/03/2018 FINDINGS: Clear mastoid air cells and middle ear cavities. Multiple small bilateral maxillary sinus mucous ret ention cysts have increased in number on the left but are otherwise unchanged. New right mid to post erior ethmoid sinus opacification. No apparent nasal cavity polyp. Mild leftward nasal septum devia tion. The right infundibulum is partially effaced by mucosal thickening. Left nasal septum spur con tacts the mucosa of the left inferior turbinate. Normal temporomandibular joints. The visible extra cranial and intracranial structures are normal. IMPRESSION: 1. 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 2. Small bilateral maxillary sinus mucous retention cysts. 3. Mild leftward nasal septum deviation. Left nasal septum spur contacts the mucosa of the left inf erior turbinate. Report Dictated By: Rock Mcleod MD at 03/27/2019 12:22 PM Report E-Signed By: Rock Mcleod MD at 03/27/2019 12:28 PM WSN:[id number]
== END ==
LOC: MAMO 00:13
PROVIDERS: ATTEND Emergency Medicine
DX: J34.1 Cyst and mucocele of nose and nasal sinus (principal); J34.2 Deviated nasal septum
CPT/HCPCS: 70486